=== PATIENT | male | born 1980 | race Caucasian/White ===

== ENCOUNTER 2018-10-10 00:47 | Emergency (ER) | payer BC, SELFPAY ==
[2018-10-10] MEDS ORDERED: FENTANYL CITR 100 MCG/2 ML ONE (01:23)
[2018-10-10] MEDS ORDERED: NA CHLORIDE 0.9% 1,000 ML ONE ×2 (01:23→03:42)
[2018-10-10] MEDS ORDERED: ONDANSETRON 4 MG/2 ML VIAL ONE (01:23)
[2018-10-10 01:30] LABS: Absolute Lymphocytes (CBC) 1.9 K/uL (0.7-4.9); Absolute Monocytes 1.3 K/uL (0.1-1.3); Absolute Neutrophil 7.9 K/uL (1.8-8.0); Basophils % 0.4 % (0-1.3); Eosinophils % 1.7 % (0-4.4); Hematocrit 43.7 % (39.6-49.0); Lymphocytes % 16.9 % (15.3-44.8); MCH 31.7 pg (27.0-35.0); MCV 89.9 fL (80-100); MPV 9.8 fL (7.6-11.3); Monocytes % 11.4 % (3.3-12.3); RBC Red Blood Cell Count 4.87 M/uL (4.33-5.43)
[2018-10-10 01:50] LABS: Albumin 3.9 g/dL (3.4-5.0); Bilirubin Direct 0.2 mg/dL (0-0.2); Bilirubin Total 0.7 mg/dL (0.2-1.0); Potassium 3.5 mmol/L (3.5-5.1); Protein, Total 7.3 g/dL (6.4-8.2)
[2018-10-10] MEDS ORDERED: CEFOXITIN SODIUM 2 GM/VIAL ONE (03:41)
--- NOTE | 2018-10-10 04:32 | ER ---
Nurse's Notes [facility] Name: Fausto Toro Age: 37 yrs Sex: Male : 1980 Arrival Date: 10/10/2018 Time: 00:52 Bed 7 Private MD: Diagnosis: Diverticulitis of large intestine without perforation or abscess without bleeding Presentation: 10/10 01:03 Presenting complaint: EMS states: Patient had 3-5 ft fall 5 days ago, bright red blood lp1 in stool x 2 days, complaint of pelvic pain tonight and dark stool with some bright red blood; Pain to left shoulder related to fall. Transition of care: patient was not received from another setting of care. Onset of symptoms was October 10, 2018. Risk Assessment: Do you want to hurt yourself or someone else? Patient reports no desire to harm self or others. Initial Sepsis Screen: Does the patient meet any 2 criteria? No. Patient's initial sepsis screen is negative. Does the patient have a suspected source of infection? No. Patient's initial sepsis screen is negative. Care prior to arrival: Medication(s) given: Fentanyl 100 mcg IV, Zofran 4 mg IV, Tylenol 1000 mg PO IV initiated. 20 GA, in the right antecubital area. 01:03 Method Of Arrival: EMS: [facility] lp1 01:03 Acuity: ALDAIR 2 lp1 Historical: - Allergies: 01:11 NKA; lp1 - Home Meds: 01:11 lisinopril 20 mg Oral tab 1 tab once daily [Active]; temazepam 30 mg Oral cap 2 cap lp1 once daily [Active]; - PMHx: 01:11 Hypertension; lp1 - PSHx: 01:11 Hernia repair; lp1 - Immunization history:: Adult Immunizations up to date. - Social history:: Smoking status: Patient/guardian denies using tobacco. - Ebola Screening: : No symptoms or risks identified at this time. Screenin:15 Abuse screen: Denies threats or abuse. Denies injuries from another. Nutritional lp1 screening: No deficits noted. Tuberculosis screening: No symptoms or risk factors identified. Fall Risk None identified. Assessment: 01:11 General: Appears uncomfortable, ill, Behavior is appropriate for age. Pain: Complains lp1 of pain in suprapubic area, left shoulder Pain currently is 6 out of 10 on a pain scale. Neuro: Level of Consciousness is awake, alert, obeys commands, Oriented to person, place, time, situation. Cardiovascular: Capillary refill < 3 seconds in bilateral fingers Rhythm is sinus rhythm. Respiratory: Respiratory effort is even, Respiratory pattern is regular, Breath sounds are clear bilaterally. GI: Abdomen is non-distended, Bowel sounds present X 4 quads. Abdomen is tender to palpation in suprapubic area Guarding noted in suprapubic area Reports lower abdominal pain, nausea. : Reports burning with urination. EENT: No signs and/or symptoms were reported regarding the EENT system. Derm: Skin is intact, Skin is clammy, Skin is flushed. Musculoskeletal: Range of motion: limited in left shoulder Reports pain in anterior aspect of left shoulder and posterior aspect of left shoulder. 02:15 Reassessment: Patient taken to CT. lp1 03:30 Reassessment: Patient and/or family updated on plan of care and expected duration. Pain lp1 level reassessed. Patient states abdominal pain returning at this time. 04:30 Reassessment: Patient and/or family updated on plan of care and expected duration. Pain lp1 level reassessed. Patient is alert, oriented x 3, equal unlabored respirations, skin warm/dry/pink. Patient states symptoms have improved. 04:47 Reassessment: Patient waiting for ride home. lp1 Vital Signs: 01:00 BP 139 / 77; Pulse 72; Resp 17; Temp 99.1(O); Pulse Ox 96% on R/A; Weight 115.67 kg; lp1 Height 6 ft. 3 in. (190.50 cm); Pain 6/10; 01:09 Pulse Ox 86% on R/A; lp1 01:09 Pulse Ox 97% on 2 lpm NC; lp1 02:42 BP 122 / 69; Pulse 61; Resp 17; Pulse Ox 98% on R/A; Pain 3/10; tl1 02:43 Temp 98(O); tl1 03:30 BP 122 / 63; Pulse 60; Resp 18; Pulse Ox 97% on R/A; lp1 04:19 BP 119 / 75; Pulse 67; Resp 18; Pulse Ox 97% on R/A; lp1 01:00 Body Mass Index 31.87 (115.67 kg, 190.50 cm) lp1 ED Course: 00:52 Patient arrived in ED. al2 01:03 Sylvain Mo MD is Attending Physician. gs 01:08 Triage completed. lp1 01:09 Arm band placed on right wrist. lp1 01:15 Patient has correct armband on for positive identification. Placed in gown. Cardiac lp1 monitor on. Pulse ox on. NIBP on. 01:16 Isabel Cerrato, RN is Primary Nurse. lp1 01:30 Maintain EMS IV. Dressing intact. Good blood return noted. Site clean \T\ dry. Gauge \T\ lp 1 site: 20g to R AC. 02:16 Maintain EMS IV. IV infiltrated while at CT. lp1 02:16 Inserted saline lock: 20 gauge in left antecubital area, using aseptic technique. lp1 02:18 Radiology exam delayed due to IV insertion attempt and/or patient not having kw1 appropriate IV at this time. 02:[address] via stretcher. kw1 02:29 CT Abd/Pelvis - W/Contrast In Process Unspecified. EDMS 02:30 CT completed. Patient tolerated procedure well. Patient moved back from CT. kw1 04:31 Augustine Rhodes MD is Referral Physician. gs 04:46 No provider procedures requiring assistance completed. IV discontinued, No lp1 redness/swelling at site. Pressure dressing applied. Administered Medications: 01:23 Drug: fentaNYL (PF) 50 mcg Route: IVP; Infused Over: 2 mins; Site: right antecubital; tl1 02:53 Follow up: Response: No adverse reaction; Marked relief of symptoms; Pain is decreased tl1 01:23 Drug: Zofran 4 mg Route: IVP; Infused Over: 2 mins; Site: right antecubital; tl1 02:54 Follow up: Response: No adverse reaction; Marked relief of symptoms; Nausea is decreasedtl1 01:24 Drug: NS 0.9% 1000 ml Route: IV; Rate: 1 bolus; Site: right antecubital; tl1 02:45 Follow up: IV Status: Completed infusion; IV Intake: 1000ml lp1 03:42 Drug: cefOXitin 2 grams Route: IVPB; Infused Over: 30 mins; Site: left antecubital; tl1 04:15 Follow up: IV Status: Completed infusion tl1 03:42 Drug: fentaNYL (PF) 50 mcg Route: IVP; Infused Over: 2 mins; Site: left antecubital; tl1 04:15 Follow up: Response: No adverse reaction; Marked relief of symptoms; Pain is decreased tl1 Intake: 02:45 IV: 1000ml; Total: 1000ml. lp1 Outcome: 04:32 Discharge ordered by . 04:46 Condition: stable lp1 04:46 Discharge instructions given to patient, Instructed on discharge instructions, follow up and referral plans. medication usage, Demonstrated understanding of instructions, follow-up care, medications, Prescriptions given X 3. 05:20 Discharged to home ambulatory, with friend. lp1 05:21 Patient left the ED. lp1 Signatures: Dispatcher [employer] EDMS Isabel Cerrato RN RN lp1 Kathy Arriaga RN RN tl1 Sylvain Mo MD MD Taylor Wilkes1 Ciara Eisenberg2 Corrections: (The following items were deleted from the chart) 04:46 03:30 Reassessment: Patient states abdominal pain returning at this time lp1 lp1 04:46 02:30 Reassessment: Patient states some relief from medication administered; lp1 lp1
--- NOTE | 2018-10-10 04:33 | EDPHYS ---
Physician Documentation [facility] Name: Fausto Toro Age: 37 yrs Sex: Male : 1980 Arrival Date: 10/10/2018 Time: 00:52 Bed 7 Private MD: ED Physician Sylvain Mo HPI: 10/10 04:28 This 37 yrs old Male presents to ER via EMS with complaints of abdominal pain.gs 04:29 The patient presents with abdominal pain in the lower abdomen. Onset: The gs symptoms/episode began/occurred 2 day(s) ago, and became persistent. The symptoms do not radiate. Associated signs and symptoms: Pertinent positives: blood in stools. Associated signs and symptoms: Pertinent positives: constipation, Pertinent negatives: fever, vomiting, vomiting blood. The symptoms are described as sharp. Modifying factors: The symptoms are alleviated by nothing, the symptoms are aggravated by nothing. Severity of pain: At its worst the pain was severe in the emergency department the pain has improved mildly. The patient has not experienced similar symptoms in the past. Historical: - Allergies: 01:11 NKA; lp1 - Home Meds: 01:11 lisinopril 20 mg Oral tab 1 tab once daily [Active]; temazepam 30 mg Oral cap 2 cap lp1 once daily [Active]; - PMHx: 01:11 Hypertension; lp1 - PSHx: 01:11 Hernia repair; lp1 - Immunization history:: Adult Immunizations up to date. - Social history:: Smoking status: Patient/guardian denies using tobacco. - Ebola Screening: : No symptoms or risks identified at this time. ROS: 04:29 All other systems are negative. gs Exam: 04:29 Head/Face: Normocephalic, atraumatic. Eyes: Pupils equal round and reactive to light, gs extra-ocular motions intact. Lids and lashes normal. Conjunctiva and sclera are non-icteric and not injected. Cornea within normal limits. Periorbital areas with no swelling, redness, or edema. ENT: Nares patent. No nasal discharge, no septal abnormalities noted. Tympanic membranes are normal and external auditory canals are clear. Oropharynx with no redness, swelling, or masses, exudates, or evidence of obstruction, uvula midline. Mucous membranes moist. Neck: Trachea midline, no thyromegaly or masses palpated, and no cervical lymphadenopathy. Supple, full range of motion without nuchal rigidity, or vertebral point tenderness. No Meningismus. Chest/axilla: Normal chest wall appearance and motion. Nontender with no deformity. No lesions are appreciated. Cardiovascular: Regular rate and rhythm with a normal S1 and S2. No gallops, murmurs, or rubs. Normal PMI, no JVD. No pulse deficits. Respiratory: Lungs have equal breath sounds bilaterally, clear to auscultation and percussion. No rales, rhonchi or wheezes noted. No increased work of breathing, no retractions or nasal flaring. Back: No spinal tenderness. No costovertebral tenderness. Full range of motion. Male : Normal genitalia with no discharge or lesions. Skin: Warm, dry with normal turgor. Normal color with no rashes, no lesions, and no evidence of cellulitis. MS/ Extremity: Pulses equal, no cyanosis. Neurovascular intact. Full, normal range of motion. Neuro: Awake and alert, GCS 15, oriented to person, place, time, and situation. Cranial nerves II-XII grossly intact. Motor strength 5/5 in all extremities. Sensory grossly intact. Cerebellar exam normal. Normal gait. 04:29 Constitutional: The patient appears alert, awake, uncomfortable. 04:29 Abdomen/GI: Palpation: moderate abdominal tenderness, in the right lower quadrant and left lower quadrant, rebound tenderness, is not appreciated. Vital Signs: 01:00 BP 139 / 77; Pulse 72; Resp 17; Temp 99.1(O); Pulse Ox 96% on R/A; Weight 115.67 kg; lp1 Height 6 ft. 3 in. (190.50 cm); Pain 6/10; 01:09 Pulse Ox 86% on R/A; lp1 01:09 Pulse Ox 97% on 2 lpm NC; lp1 02:42 BP 122 / 69; Pulse 61; Resp 17; Pulse Ox 98% on R/A; Pain 3/10; tl1 02:43 Temp 98(O); tl1 03:30 BP 122 / 63; Pulse 60; Resp 18; Pulse Ox 97% on R/A; lp1 04:19 BP 119 / 75; Pulse 67; Resp 18; Pulse Ox 97% on R/A; lp1 01:00 Body Mass Index 31.87 (115.67 kg, 190.50 cm) lp1 MDM: 01:12 Patient medically screened. 04:29 Differential diagnosis: bowel obstruction, diverticulitis, gastritis, gastroesophageal gs reflux disease, pancreatitis. Data reviewed: vital signs, nurses notes. Data reviewed: lab test result(s), radiologic studies. Counseling: I had a detailed discussion with the patient and/or guardian regarding: the historical points, exam findings, and any diagnostic results supporting the discharge/admit diagnosis, lab results, radiology results, the need for outpatient follow up. Response to treatment: the patient's symptoms have markedly improved after treatment, patient is well hydrated. and as a result, I will discharge patient. 10/10 01:11 Order name: Basic Metabolic Panel; Complete Time: :56 10/10 01:11 Order name: CBC with Diff; Complete Time: :56 10/10 01:11 Order name: Hepatic Function; Complete Time: :56 10/10 01:11 Order name: Lipase; Complete Time: :56 10/10 01:11 Order name: CT Abd/Pelvis - W/Contrast 10/10 01:11 Order name: IV Saline Lock; Complete Time: 01:17 10/10 01:11 Order name: Labs collected and sent; Complete Time: 01:25 gs Administered Medications: 01:23 Drug: fentaNYL (PF) 50 mcg Route: IVP; Infused Over: 2 mins; Site: right antecubital; tl1 02:53 Follow up: Response: No adverse reaction; Marked relief of symptoms; Pain is decreased tl1 01:23 Drug: Zofran 4 mg Route: IVP; Infused Over: 2 mins; Site: right antecubital; tl1 02:54 Follow up: Response: No adverse reaction; Marked relief of symptoms; Nausea is decreasedtl1 01:24 Drug: NS 0.9% 1000 ml Route: IV; Rate: 1 bolus; Site: right antecubital; tl1 02:45 Follow up: IV Status: Completed infusion; IV Intake: 1000ml lp1 03:42 Drug: cefOXitin 2 grams Route: IVPB; Infused Over: 30 mins; Site: left antecubital; tl1 04:15 Follow up: IV Status: Completed infusion tl1 03:42 Drug: fentaNYL (PF) 50 mcg Route: IVP; Infused Over: 2 mins; Site: left antecubital; tl1 04:15 Follow up: Response: No adverse reaction; Marked relief of symptoms; Pain is decreased tl1 Disposition: 10/10/18 04:32 Discharged to Home. Impression: Diverticulitis of large intestine without perforation or abscess without bleeding. - Condition is Stable. - Discharge Instructions: High-Fiber Diet, Diverticulitis. - Prescriptions for Flagyl 500 mg Oral Tablet - take 1 tablet by ORAL route every 6 hours for 10 days; 40 tablet. Keflex 500 mg Oral Capsule - take 2 capsule by ORAL route every 12 hours for 10 days; 40 capsule. Tylenol- Codeine #4 300-60 mg Oral Tablet - take 1 tablet by ORAL route every 6 hours As needed; 12 tablet. - Medication Reconciliation Form, Thank You Letter, Antibiotic Education, Prescription Opioid Use form. - Follow up: Private Physician; When: 2 - 3 days; Reason: Re-evaluation by your physician. Follow up: Augustine Rhodes MD; When: 2 - 3 days; Reason: Re-evaluation by your physician. Signatures: Dispatcher [employer] EDIsabel Brown RN RN lp1 Kathy Arriaga RN RN tl1 Sylvain Mo MD MD Corrections: (The following items were deleted from the chart) 05:21 04:32 10/10/2018 04:32 Discharged to Home. Impression: Diverticulitis of large lp1 intestine without perforation or abscess without bleeding. Condition is Stable. Forms are Medication Reconciliation Form, Thank You Letter, Antibiotic Education, Prescription Opioid Use. Follow up: Private Physician; When: 2 - 3 days; Reason: Re-evaluation by your physician. Follow up: Augustine Rhodes; When: 2 - 3 days; Reason: Re-evaluation by your physician. gs
--- NOTE | 2018-10-10 09:12 | RAD REPORT ---
EXAM DESCRIPTION: CT - Abdomen Pelvis W Contrast - 10/10/2018 5:56 am CLINICAL HISTORY: Abdominal pain with hematochezia for 2 days COMPARISON: May 2017 TECHNIQUE: Computed axial tomography of the abdomen pelvis was obtained. 100 cc Isovue-300 was admin istered intravenously. Oral contrast was not requested which limits evaluation of bowel.Preliminary r eport generated by [employer] and reviewed prior to dictation All CT scans are performed using dose optimization technique as appropriate and may include automated exposure control or mA/KV adjustment according to patient size. FINDINGS: Fatty infiltration liver. Spleen, pancreas, adrenal and kidneys appear unremarkable. Increased density within the appendix could represent contrast or an appendicolith. The appendix is n ormal caliber. Moderate stranding is present adjacent to the sigmoid colon. Diverticula are noted. Free air is not s een. An abscess is not noted. A 47 millimeter lucency with sclerotic border is within the right iliac crest is unchanged from 2016 and likely is benign IMPRESSION: Moderate diverticulitis
[2018-10-10 13:04] VITALS: TEMP 98
[2018-10-10 13:05] VITALS: O2SAT 97
[2018-10-10 13:07] VITALS: BP 119/75
== END 2018-10-10 05:21 | disposition home or self-care (01) ==
LOC: ER 00:47
DX: K57.32 Diverticulitis of large intestine without perforation or abscess without bleeding (principal); I10 Essential (primary) hypertension
CPT/HCPCS: 36415; 74177; 80048; 80076; 83690; 85025; 99285; J0694; J2405; J3010; J7030; Q9967

== ENCOUNTER 2019-02-26 18:24 | Inpatient (IN) | payer OTHER, SELFPAY ==
[2019-02-26 19:25] LABS: Absolute Lymphocytes (CBC) 1.3 K/uL (0.7-4.9); Absolute Monocytes 1.1 K/uL (0.1-1.3); Absolute Neutrophil 8.6 K/uL (1.8-8.0); Basophils % 0.4 % (0-1.3); Eosinophils % 0.8 % (0-4.4); Hematocrit 47.2 % (39.6-49.0); Lymphocytes % 11.5 % (15.3-44.8); Monocytes % 9.5 % (3.3-12.3)
[2019-02-26] MEDS ORDERED: ONDANSETRON 4 MG/2 ML VIAL ONE (19:25)
[2019-02-26] MEDS ORDERED: MORPHINE 4 MG/ML SYR ONE ×2 (19:25→20:41)
[2019-02-26] MEDS ORDERED: NA CHLORIDE 0.9% 1,000 ML ONE (19:25)
[2019-02-26 19:38] LABS: Albumin 4.2 g/dL (3.4-5.0); Bilirubin Direct 0.2 mg/dL (0-0.2); Potassium 3.8 mmol/L (3.5-5.1)
--- NOTE | 2019-02-26 20:35 | RAD REPORT ---
EXAM DESCRIPTION: CTAbdomen Pelvis W Contrast - 02/26/2019 8:21 pm CLINICAL HISTORY: Abdominal pain. ABD PAIN COMPARISON: Abdomen Pelvis W Contrast dated 10/10/2018; Abdomen Pelvis W Contrast dated 7; Abdomen Pelvis W Contrast dated 02/17/2016 TECHNIQUE: Biphasic CT imaging of the abdomen and pelvis was performed with 100 ml non-ionic IV cont rast. All CT scans are performed using dose optimization technique as appropriate and may include automated exposure control or mA/KV adjustment according to patient size. FINDINGS: The lung bases are clear. Diffuse fatty liver is present. The spleen, pancreas, adrenal glands and kidneys are within normal li mits. Mild pneumoperitoneum is present. There is inflammatory changes in the left lower quadrant surroundin g short segment of the sigmoid colon. Multiple diverticula are present. Pockets of air are present al yazan the left pericolic gutter. The appendix is normal. No evidence of significant lymphadenopathy. No significant change in right iliac wing lucent lesions. IMPRESSION: Acute left lower quadrant diverticulitis is suspected, mild to moderate in severity. Ext raluminal air is present along the left pericolic gutter as well as a small volume of pneumoperitoneu m, likely all related to this process. Followup colonoscopy would be suggested for direct visualizati on.
[2019-02-26] MEDS ORDERED: CIPROFLOXACIN 400mg IV 400 MG/200 ML BAG IV ONE (20:41)
[2019-02-26] MEDS ORDERED: METRONIDAZOLE 500mg IVPB 500 MG/100 ML BAG IV ONE (20:41)
--- NOTE | 2019-02-26 21:01 | ER ---
Nurse's Notes [facility] Name: Fausto Toro Age: 38 yrs Sex: Male : 1980 Arrival Date: 02/26/2019 Time: 18:28 Bed 17 Private MD: None, None Diagnosis: Diverticulitis of large inestine with perforation Presentation: 02/26 18:33 Presenting complaint: Patient states: LLQ pain, n/d since Monday. Transition of care: sv patient was not received from another setting of care. Onset of symptoms was February 24, 2019. Care prior to arrival: None. 18:33 Method Of Arrival: Ambulatory sv 18:33 Acuity: ALDAIR 3 sv 18:36 Risk Assessment: Do you want to hurt yourself or someone else? Patient reports no tw2 desire to harm self or others. Initial Sepsis Screen: Does the patient meet any 2 criteria? No. Patient's initial sepsis screen is negative. Does the patient have a suspected source of infection? No. Patient's initial sepsis screen is negative. Triage Assessment: 18:33 General: Appears in no apparent distress. uncomfortable, well developed, Behavior is sv cooperative, appropriate for age, restless. Pain: Complains of pain in left lower quadrant Pain currently is 8 out of 10 on a pain scale. Pain began 2-3 days ago. Noted to be grimacing, guarding. Neuro: Level of Consciousness is awake, alert, obeys commands, Oriented to person, place, time, situation, Gait is steady. Respiratory: Respiratory effort is even, unlabored, Respiratory pattern is regular, symmetrical. GI: Reports lower abdominal pain, diarrhea, nausea. Historical: - Allergies: 18:33 NKA; sv - Home Meds: 18:37 lisinopril 20 mg Oral tab 1 tab once daily [Active]; temazepam 30 mg Oral cap 2 cap tw2 once daily [Active]; - PMHx: 18:33 Hypertension; Diverticulitis; sv - PSHx: 18:33 Hernia repair; sv - Immunization history:: Adult Immunizations. - Social history:: Smoking status: . - Ebola Screening: : Patient denies travel to an Ebola-affected area in the 21 days before illness onset. Screenin:35 Abuse screen: Denies threats or abuse. Nutritional screening: No deficits noted. tw2 Tuberculosis screening: No symptoms or risk factors identified. Fall Risk None identified. Assessment: 18:37 General: Appears uncomfortable, Behavior is calm, cooperative, appropriate for age. tw2 Pain: Complains of pain in abdomen. Neuro: Level of Consciousness is awake, alert, obeys commands, Oriented to person, place, time, Appropriate for age. Cardiovascular: Heart tones S1 S2 Patient's skin is warm and dry. Respiratory: Airway is patent Respiratory effort is even, unlabored, Respiratory pattern is regular, symmetrical, Breath sounds are clear bilaterally. GI: Abdomen is flat, Bowel sounds present X 4 quads. Abd is soft X 4 quads Reports lower abdominal pain. : No signs and/or symptoms were reported regarding the genitourinary system. EENT: No signs and/or symptoms were reported regarding the EENT system. Derm: No signs and/or symptoms reported regarding the dermatologic system. Musculoskeletal: Range of motion: intact in all extremities. 19:21 General: Appears in no apparent distress. uncomfortable, Behavior is calm, cooperative, ao appropriate for age. Pain: Complains of pain in abdomen Pain currently is 8 out of 10 on a pain scale. Neuro: Level of Consciousness is awake, alert, obeys commands, Oriented to person, place, time, Appropriate for age Moves all extremities. Full function Speech is normal, Facial symmetry appears normal. Cardiovascular: Heart tones S1 S2 Capillary refill < 3 seconds Patient's skin is warm and dry. Respiratory: Airway is patent Respiratory effort is even, unlabored, Respiratory pattern is regular, symmetrical, Breath sounds are clear bilaterally. GI: Abdomen is flat, Bowel sounds present X 4 quads. Abd is soft X 4 quads Reports lower abdominal pain. : No signs and/or symptoms were reported regarding the genitourinary system. EENT: No signs and/or symptoms were reported regarding the EENT system. Derm: No signs and/or symptoms reported regarding the dermatologic system. Skin is intact, Skin temperature is warm. Musculoskeletal: Range of motion: intact in all extremities. 20:50 Reassessment: Patient appears in no apparent distress at this time. Patient and/or ao family updated on plan of care and expected duration. Pain level reassessed. Patient is alert, oriented x 3, equal unlabored respirations, skin warm/dry/pink. 22:00 Reassessment: Patient appears in no apparent distress at this time. Patient and/or ao family updated on plan of care and expected duration. Pain level reassessed. Patient is alert, oriented x 3, equal unlabored respirations, skin warm/dry/pink. Waiting on Dispo orders. Dr Vaca was consult Patient states feeling better. Patient states symptoms have improved. 23:45 Reassessment: Patient appears in no apparent distress at this time. Patient and/or ao family updated on plan of care and expected duration. Pain level reassessed. Patient to be admitted to the hospital per Dru Cobb NP. Dr Samuels and Bernardino had spoken to patient already. 02/27 00:04 Reassessment: Patient is ER hold how. See [facility] for documentation. ao 01:14 Reassessment: Patient was admitted to the hospital before any [employer] charting had to ao be starting. Report was called to RASHAD Posada. Patient was transported to his room. VS stable. Vital Signs: 02/26 18:33 BP 121 / 106; Pulse 98; Resp 24; Temp 99.5; Pulse Ox 99% ; Weight 115.67 kg; Height 6 sv ft. 3 in. (190.50 cm); Pain 8/10; 19:30 BP 132 / 65; Pulse 88; Resp 16; Pulse Ox 96% on R/A; ao 20:30 BP 110 / 78; Pulse 92; Resp 16; Pulse Ox 100% on R/A; ao 22:30 BP 122 / 80; Pulse 93; Resp 18; Pulse Ox 100% on R/A; ao 02/27 00:04 BP 130 / 86; Pulse 90; Resp 16; Pulse Ox 96% on R/A; ao 02/26 18:33 Body Mass Index 31.87 (115.67 kg, 190.50 cm) sv ED Course: 02/26 18:28 Patient arrived in ED. mr 18:28 None, None is Private Physician. mr 18:33 Triage completed. sv 18:34 Arm band placed on. sv 18:35 Magdalena Dutta, RASHAD is Primary Nurse. tw2 18:36 Bed in low position. Call light in reach. Pulse ox on. NIBP on. tw2 18:50 Dru Cobb NP is PHCP. pm1 18:50 Sylvain Mo MD is Attending Physician. pm1 18:56 Radiology exam delayed due to lab results not completed at this time. (BUN/Creatinine). vm2 19:00 Report given to RASHAD Perez - pending labs and medication at this time. tw2 19:20 Initial lab(s) drawn, by me, sent to lab. Inserted saline lock: 20 gauge antecubital ao area, using aseptic technique. Blood collected. 19:38 Radiology exam delayed due to lab results not completed at this time. (BUN/Creatinine). vm2 19:[address] via wheelchair. nj 20:04 CT completed. Patient tolerated procedure well. Patient moved back from CT. nj 20:05 CT Abd/Pelvis - W/Contrast: IV contrast only In Process Unspecified. EDMS 20:56 Paul Hutchison MD is Hospitalizing Provider. pm1 21:00 Boris Rojas MD is Hospitalizing Provider. pm1 0417 00:07 No provider procedures requiring assistance completed. Patient admitted, IV remains in ao place. Administered Medications: 02/26 19:18 Drug: Zofran 4 mg Route: IVP; Site: right antecubital; ao 20:37 Follow up: Response: No adverse reaction ao 19:19 Drug: NS 0.9% 1000 ml Route: IV; Rate: 1000 ml; Site: right antecubital; ao 20:37 Follow up: IV Status: Completed infusion ao 19:19 Drug: morphine 4 mg Route: IVP; Site: right antecubital; ao 20:36 Follow up: Response: Pain is unchanged, physician notified ao 20:36 Drug: Cipro 400 mg Volume: 200 ml; Route: IVPB; Infused Over: 60 mins; Site: right ao antecubital; 22:13 Follow up: IV Status: Completed infusion ao 20:36 Drug: Flagyl 500 mg Volume: 100 ml; Route: IVPB; Rate: 200 ml/hr; Infused Over: 30 ao mins; Site: right antecubital; 22:13 Follow up: IV Status: Completed infusion ao 20:36 Drug: morphine 4 mg Route: IVP; Site: right antecubital; ao 22:14 Follow up: Response: No adverse reaction; Pain is decreased ao 22:14 Drug: Zosyn 3.375 grams Route: IVPB; Infused Over: 60 mins; Site: right antecubital; ao Outcome: 21:00 Decision to Hospitalize by Provider. pm1 02/27 00:08 Admitted to ER Hold. Please see [facility] for further documentation. ao Condition: stable Instructed on the need for admit. 01:15 Patient left the ED. ao Signatures: Dispatcher [employer] EDRachel Koehler, RASHAD rojo Ashley Jauregui, Chris RN RN Dru Munoz, HUMAN SERVICES CARE SPECIALIST HUMAN SERVICES CARE SPECIALIST pm1 Magdalena Dutta RN RN 2 Isai Dixon [facility]
--- NOTE | 2019-02-26 21:02 | EDPHYS ---
Physician Documentation [facility] Name: Fausto Toro Age: 38 yrs Sex: Male : 1980 Arrival Date: 02/26/2019 Time: 18:28 Bed 17 Private MD: None, None ED Physician Sylvain Mo HPI: 02/26 19:00 This 38 yrs old Male presents to ER via Ambulatory with complaints of pm1 Abdominal Pain, Nausea. 19:00 The patient presents with abdominal pain in the lower abdomen. Onset: The pm1 symptoms/episode began/occurred 2 day(s) ago. The symptoms do not radiate. Associated signs and symptoms: Pertinent positives: nausea, Pertinent negatives: diarrhea, dysuria, fever, vomiting. The symptoms are described as sharp. Modifying factors: The symptoms are alleviated by nothing, the symptoms are aggravated by nothing. Severity of pain: in the emergency department the pain is actually worse. The patient has experienced similar episodes in the past, several times, but today's symptoms are worse, more painful. The patient has not recently seen a physician. possibly onset by eating grapes. Historical: - Allergies: 18:33 NKA; sv - Home Meds: 18:37 lisinopril 20 mg Oral tab 1 tab once daily [Active]; temazepam 30 mg Oral cap 2 cap tw2 once daily [Active]; - PMHx: 18:33 Hypertension; Diverticulitis; sv - PSHx: 18:33 Hernia repair; sv - Immunization history:: Adult Immunizations. - Social history:: Smoking status: . - Ebola Screening: : Patient denies travel to an Ebola-affected area in the 21 days before illness onset. ROS: 19:00 Constitutional: Negative for fever, chills, and weight loss, Eyes: Negative for injury, pm1 pain, redness, and discharge, ENT: Negative for injury, pain, and discharge, Neck: Negative for injury, pain, and swelling, Cardiovascular: Negative for chest pain, palpitations, and edema, Respiratory: Negative for shortness of breath, cough, wheezing, and pleuritic chest pain. 19:00 Back: Negative for injury and pain, : Negative for injury, bleeding, discharge, and swelling, MS/Extremity: Negative for injury and deformity, Skin: Negative for injury, rash, and discoloration, Neuro: Negative for headache, weakness, numbness, tingling, and seizure. 19:00 Abdomen/GI: Positive for abdominal pain, nausea, Negative for vomiting, diarrhea, constipation. Exam: 19:00 Constitutional: This is a well developed, well nourished patient who is awake, alert, pm1 and in no acute distress. Head/Face: Normocephalic, atraumatic. Eyes: Pupils equal round and reactive to light, extra-ocular motions intact. Lids and lashes normal. Conjunctiva and sclera are non-icteric and not injected. Cornea within normal limits. Periorbital areas with no swelling, redness, or edema. ENT: Nares patent. No nasal discharge, no septal abnormalities noted. Tympanic membranes are normal and external auditory canals are clear. Oropharynx with no redness, swelling, or masses, exudates, or evidence of obstruction, uvula midline. Mucous membranes moist. Neck: Trachea midline, no thyromegaly or masses palpated, and no cervical lymphadenopathy. Supple, full range of motion without nuchal rigidity, or vertebral point tenderness. No Meningismus. Chest/axilla: Normal chest wall appearance and motion. Nontender with no deformity. No lesions are appreciated. Cardiovascular: Regular rate and rhythm with a normal S1 and S2. No gallops, murmurs, or rubs. Normal PMI, no JVD. No pulse deficits. Respiratory: Lungs have equal breath sounds bilaterally, clear to auscultation and percussion. No rales, rhonchi or wheezes noted. No increased work of breathing, no retractions or nasal flaring. 19:00 Back: No spinal tenderness. No costovertebral tenderness. Full range of motion. Skin: Warm, dry with normal turgor. Normal color with no rashes, no lesions, and no evidence of cellulitis. MS/ Extremity: Pulses equal, no cyanosis. Neurovascular intact. Full, normal range of motion. 19:00 Abdomen/GI: Inspection: abdomen appears normal, Bowel sounds: normal, Palpation: soft, moderate abdominal tenderness, in the right lower quadrant and left lower quadrant, mass, is not appreciated, rebound tenderness, is not appreciated. 19:00 Neuro: Orientation: is normal, Motor: is normal, moves all fours. Vital Signs: 18:33 BP 121 / 106; Pulse 98; Resp 24; Temp 99.5; Pulse Ox 99% ; Weight 115.67 kg; Height 6 sv ft. 3 in. (190.50 cm); Pain 8/10; 19:30 BP 132 / 65; Pulse 88; Resp 16; Pulse Ox 96% on R/A; ao 20:30 BP 110 / 78; Pulse 92; Resp 16; Pulse Ox 100% on R/A; ao 22:30 BP 122 / 80; Pulse 93; Resp 18; Pulse Ox 100% on R/A; ao 02/27 00:04 BP 130 / 86; Pulse 90; Resp 16; Pulse Ox 96% on R/A; ao 02/26 18:33 Body Mass Index 31.87 (115.67 kg, 190.50 cm) sv MDM: 02/26 18:54 Patient medically screened. pm1 20:53 Physician consultation: Paul Hutchison MD was called at 20:53, was contacted at 20:53, pm1 regarding consult, patient's condition, and will see patient in ED, shortly. 20:56 Counseling: I had a detailed discussion with the patient and/or guardian regarding: the pm1 historical points, exam findings, and any diagnostic results supporting the discharge/admit diagnosis, lab results, radiology results, the need for further work-up and treatment in the hospital. 21:06 Physician consultation: Paul Hutchison MD would like medications started, Zosyn, in the pm1 emergency department to see patient at 21:06. 02/27 00:00 Data reviewed: vital signs. Data interpreted: Pulse oximetry: on room air is 96 %. pm1 Interpretation: normal. 02/26 18:55 Order name: Basic Metabolic Panel; Complete Time: 20:24 pm1 02/26 18:55 Order name: CBC with Diff; Complete Time: 20:24 pm1 02/26 18:55 Order name: Creatinine for Radiology; Complete Time: 20:24 pm1 02/26 18:55 Order name: Hepatic Function; Complete Time: 20:24 pm1 02/26 18:55 Order name: Lipase; Complete Time: 20:24 pm1 02/26 22:19 Order name: Urine Dipstick--Ancillary (enter results); Complete Time: 23:47 mw2 02/26 18:55 Order name: CT Abd/Pelvis - W/Contrast: IV contrast only; Complete Time: 20:46 pm1 02/26 18:55 Order name: IV Saline Lock; Complete Time: 19:19 pm1 02/26 18:55 Order name: Labs collected and sent; Complete Time: 19:19 pm1 02/26 18:55 Order name: Urine Dipstick-Ancillary (obtain specimen); Complete Time: 22:15 pm1 02/26 19:00 Order name: NPO; Complete Time: 19:17 pm1 Administered Medications: 02/26 19:18 Drug: Zofran 4 mg Route: IVP; Site: right antecubital; ao 20:37 Follow up: Response: No adverse reaction ao 19:19 Drug: NS 0.9% 1000 ml Route: IV; Rate: 1000 ml; Site: right antecubital; ao 20:37 Follow up: IV Status: Completed infusion ao 19:19 Drug: morphine 4 mg Route: IVP; Site: right antecubital; ao 20:36 Follow up: Response: Pain is unchanged, physician notified ao 20:36 Drug: Cipro 400 mg Volume: 200 ml; Route: IVPB; Infused Over: 60 mins; Site: right ao antecubital; 22:13 Follow up: IV Status: Completed infusion ao 20:36 Drug: Flagyl 500 mg Volume: 100 ml; Route: IVPB; Rate: 200 ml/hr; Infused Over: 30 ao mins; Site: right antecubital; 22:13 Follow up: IV Status: Completed infusion ao 20:36 Drug: morphine 4 mg Route: IVP; Site: right antecubital; ao 22:14 Follow up: Response: No adverse reaction; Pain is decreased ao 22:14 Drug: Zosyn 3.375 grams Route: IVPB; Infused Over: 60 mins; Site: right antecubital; ao Disposition: 02/27 09:40 Co-signature as Attending Physician, Sylvain Mo MD. gs Disposition: 02/26/19 21:00 Hospitalization ordered by Boris Rojas for Inpatient Admission. Preliminary diagnosis is Diverticulitis of large inestine with perforation. - Bed requested for Telemetry/MedSurg (Inpatient). - Status is Inpatient Admission. ao - Condition is Stable. - Problem is new. - Symptoms have improved. UTI on Admission? No Signatures: Dispatcher [employer] Rachel Ma RN Prabha Roberts, RN RN dw Lizzeth Hammond, RASHAD RN bb Chris Hagen, RN RN ao Dru Cobb, DOUBLE END TRIMMER DOUBLE END TRIMMER pm1 Magdalena Dutta RN RN tw2 Sylvain Mo MD MD gs Corrections: (The following items were deleted from the chart) 02/26 19:11 18:55 Urine Test ordered. pm1 tw2 23:33 21:00 Hospitalization Ordered by Boris Rojas MD for Inpatient Admission. Preliminary dw diagnosis is Diverticulitis of large inestine with perforation. Bed requested for Telemetry/MedSurg (Inpatient). Status is Inpatient Admission. Condition is Stable. Problem is new. Symptoms have improved. UTI on Admission? No. pm1 02/27 00:31 02/26 23:33 02/26/2019 21:00 Hospitalization Ordered by Boris Rojas MD for Inpatient bb Admission. Preliminary diagnosis is Diverticulitis of large inestine with perforation. Bed requested for [facility] ER HOLD. Status is Inpatient Admission. Condition is Stable. Problem is new. Symptoms have improved. UTI on Admission? No. dw 02/27 00:32 00:31 02/26/2019 21:00 Hospitalization Ordered by Boris Rojas MD for Inpatient bb Admission. Preliminary diagnosis is Diverticulitis of large inestine with perforation. Bed requested for Telemetry/MedSurg (Inpatient). Status is Inpatient Admission. Condition is Stable. Problem is new. Symptoms have improved. UTI on Admission? No. bb 01:15 00:32 02/26/2019 21:00 Hospitalization Ordered by Boris Rojas MD for Inpatient ao Admission. Preliminary diagnosis is Diverticulitis of large inestine with perforation. Bed requested for Telemetry/MedSurg (Inpatient). Status is Inpatient Admission. Condition is Stable. Problem is new. Symptoms have improved. UTI on Admission? No. bb
[2019-02-26] MEDS ORDERED: PIPER/TAZO/NS 3.375gm 3.375 GM/100 ML BAG ONE (22:13)
[2019-02-26 22:34] LABS: Urine Blood NEGATIVE (NEG); Urine Glucose NEGATIVE (NEG); Urine Protein NEGATIVE (NEG); Urine Specific Gravity 1.015 (1.005-1.030); Urine pH 6.5 (5.0-7.0)
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
[2019-02-27] MEDS ORDERED: NA CHLORIDE 0.9% 1,000 ML IV SCH (01:28)
[2019-02-27] MEDS: PIPER/TAZO/NS 3.375gm 3.375 GM/100 ML BAG IVPB SCH ×2 (01:28→06:50)
[2019-02-27 02:10] VITALS: BMI 31.7
[2019-02-27] MEDS: Levofloxacin 750mg IV 750 MG/150 ML BAG IV SCH (02:54)
[2019-02-27] MEDS: MORPHINE 2 MG/ML SYR IV PRN ×3 (02:54→17:09)
[2019-02-27] MEDS: METRONIDAZOLE 500mg IVPB 500 MG/100 ML BAG IV SCH ×3 (02:55→17:05)
[2019-02-27] MEDS: ONDANSETRON 4 MG/2 ML VIAL IV PRN ×3 (02:56→17:09)
[2019-02-27] MEDS ORDERED: PIPERACIL/TAZO 3.375 GM VIAL IV ONE (03:00)
[2019-02-27 04:23] LABS: Absolute Lymphocytes (CBC) 1.4 K/uL (0.7-4.9); Absolute Monocytes 1.1 K/uL (0.1-1.3); Absolute Neutrophil 8.8 K/uL (1.8-8.0); Basophils % 0.2 % (0-1.3); Eosinophils % 0.5 % (0-4.4); Hematocrit 44.6 % (39.6-49.0); Lymphocytes % 12.2 % (15.3-44.8); MPV 9.1 fL (7.6-11.3); RBC Red Blood Cell Count 4.89 M/uL (4.33-5.43)
[2019-02-27 04:36] LABS: Albumin 3.9 g/dL (3.4-5.0); Potassium 3.9 mmol/L (3.5-5.1); Protein, Total 7.5 g/dL (6.4-8.2)
[2019-02-27] MEDS ORDERED: NA CHLORIDE 0.9% 100 ML ONE (06:58)
[2019-02-27] MEDS ORDERED: KCL 20 MEQ/100 mL IVPB 20 MEQ/100 ML BAG IV SCH (09:00)
[2019-02-27] MEDS ORDERED: D50W 25 GM/50 ML SYRINGE IV PRN (09:40)
[2019-02-27] MEDS ORDERED: GLUCAGON 1 MG/VIAL IM PRN (09:40)
--- NOTE | 2019-02-27 09:42 | P.PN ---
Subjective Date of Service: 02/27/19 Chief Complaint: complicated diverticulitis Subjective: Improving (Patient states he feels somewhat better, passing gas now. no nausea. increased appetite) Physical Examination - Vital Signs Temperature: 98.8 F Blood Pressure: 127/71 Pulse: 86 Respirations: 20 Pulse Ox (%): 94 - Physical Exam General: Alert, In no apparent distress, Cooperative Gastrointestinal: Other (soft, + LLQ TTP, ND, + voluntary guarding in LLQ, + mild rebound. minimally improved from prior exam) - Studies Laboratory Data (last 24 hrs) 02/26/19 19:10: Creatinine 1.26 02/26/19 19:10: WBC 11.1 H, Hgb 16.0, Hct 47.2, Plt Count 174 02/26/19 19:10: Sodium 141, Potassium 3.8, BUN 11, Creatinine 1.26, Glucose 95, Total Bilirubin 1.0, AST 15, ALT 48, Alkaline Phosphatase 65, Lipase 105 Assessment And Plan - Current Problems (Diagnosis) (1) Diverticulitis of large intestine with complication Current Visit: Yes Status: Acute Plan: - IV hydration - increase IV fluids - antibiotic coverage - serial exams - patient does not require emergent surgical intervention at this time, but will continue to evaluate - plan discussed with patient - continue NPO - strict I/O - insulin sliding scale - toradol x 48 hours
[2019-02-27] MEDS: D5.45NS W/KCL 20MEQ 20 MEQ/1,000 ML BAG IV SCH ×3 (10:34→22:29)
[2019-02-27] MEDS: KETOROLAC 30 MG/ML INJ IV PRN ×2 (10:39→22:56)
[2019-02-27] MEDS ORDERED: INSULIN -REGULAR HUMAN 50 UNIT/0.5 ML ML SQ SCH (11:30)
[2019-02-27] MEDS ORDERED: ERTAPENEM SODIUM 1 GM VIAL IVPB ONE (14:30)
[2019-02-27] MEDS ORDERED: HYDRALAZINE HCL 20 MG/ML VIAL IV PRN (14:31)
--- NOTE | 2019-02-27 14:37 | P.PN ---
Subjective Date of Service: 02/27/19 Primary Care Provider: Dr. Petersen Chief Complaint: complicated diverticulitis Subjective: Other (Pain better controlled) Physical Examination - Vital Signs Temperature: 98.5 F Blood Pressure: 123/67 Pulse: 70 Respirations: 20 Pulse Ox (%): 95 - Physical Exam General: Alert, In no apparent distress, Oriented x3, Cooperative HEENT: Atraumatic Neck: Supple Respiratory: Clear to auscultation bilaterally, Normal air movement Cardiovascular: Normal pulses, Regular rate/rhythm Gastrointestinal: Hypoactive, No rebound, No guarding, Distended (Minimal distension), Tenderness (Pain to the left lower quadrant) Musculoskeletal: No tenderness, No warmth Integumentary: No erythema, No warmth, No cyanosis Neurological: Normal speech, Normal strength at 5/5 x4 extr, Normal tone, Normal affect - Studies Laboratory Data (last 24 hrs) 02/26/19 19:10: Creatinine 1.26 02/26/19 19:10: WBC 11.1 H, Hgb 16.0, Hct 47.2, Plt Count 174 02/26/19 19:10: Sodium 141, Potassium 3.8, BUN 11, Creatinine 1.26, Glucose 95, Total Bilirubin 1.0, AST 15, ALT 48, Alkaline Phosphatase 65, Lipase 105 Medications List Reviewed: Yes Assessment & Plan Discharge Plan: Home Plan to discharge in: Greater than 2 days Physician Review Additional Text: Impression: Recurrent diverticulitis complicated with pneumoperitoneum Hypertension Obesity, BMI 31 Plan: Recurrent diverticulitis complicated with pneumoperitoneum: Case discussed with surgery. Continue with IV antibiotic therapy. IV antibiotics adjusted. Patient to get 1 dose of Invanz IV. Continue Levaquin/Flagyl. Surgery has adjusted IV fluids. Continue monitor lab closely. Continue monitor exam closely. Patient reports history of diverticulitis in the past. Patient also reports history of colonoscopy about a year ago. If his condition does not improve patient may require surgical intervention. Will provide DVT prophylaxis -Lovenox. Encourage ambulation Hypertension: Will provide medication as needed Obesity, BMI 31: Will address lifestyle modification education. Time Spent Managing Pts Care (In Minutes): 55
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
[2019-02-27] MEDS ORDERED: ERTAPENEM NA 1 GM in NA CHLORIDE 0.9% 100 ML IVPB ONE (15:00)
[2019-02-27] MEDS ORDERED: PIPER/TAZO/NS 3.375gm 3.375 GM/100 ML BAG IVPB SCH (17:00)
[2019-02-27] MEDS: ENOXAPARIN 40 MG/0.4 ML SQ SCH (17:05)
[2019-02-27] MEDS: INSULIN -REGULAR HUMAN 50 UNIT/0.5 ML ML SQ SCH (18:00)
[2019-02-28] MEDS: METRONIDAZOLE 500mg IVPB 500 MG/100 ML BAG IV SCH ×3 (01:20→16:41)
[2019-02-28] MEDS: Levofloxacin 750mg IV 750 MG/150 ML BAG IV SCH (02:58)
[2019-02-28 05:29] LABS: Absolute Lymphocytes (CBC) 1.7 K/uL (0.7-4.9); Absolute Monocytes 0.9 K/uL (0.1-1.3); Absolute Neutrophil 5.1 K/uL (1.8-8.0); Basophils % 0.5 % (0-1.3); Eosinophils % 1.7 % (0-4.4); Hematocrit 42.3 % (39.6-49.0); Lymphocytes % 21.7 % (15.3-44.8); MPV 8.3 fL (7.6-11.3); Monocytes % 11.8 % (3.3-12.3); RBC Red Blood Cell Count 4.68 M/uL (4.33-5.43)
[2019-02-28 05:48] LABS: Magnesium 2.4 mg/dL (1.8-2.4); Phosphorus 2.9 mg/dL (2.5-4.9); Potassium 4.2 mmol/L (3.5-5.1)
[2019-02-28] MEDS: INSULIN -REGULAR HUMAN 50 UNIT/0.5 ML ML SQ SCH ×4 (06:00→18:00)
[2019-02-28] MEDS: D5.45NS W/KCL 20MEQ 20 MEQ/1,000 ML BAG IV SCH ×3 (08:16→19:46)
[2019-02-28 08:29] VITALS: O2SAT 95
[2019-02-28] MEDS ORDERED: FAMOTIDINE 20 MG/2 ML VIAL IV SCH (09:00)
--- NOTE | 2019-02-28 10:31 | P.PN ---
Subjective Date of Service: 02/28/19 Primary Care Provider: Dr. Petersen Chief Complaint: complicated diverticulitis Subjective: Doing well Physical Examination - Vital Signs Temperature: 98.0 F Blood Pressure: 153/75 Pulse: 75 Respirations: 18 Pulse Ox (%): 95 - Physical Exam General: Alert, In no apparent distress, Cooperative HEENT: Atraumatic Neck: Supple Respiratory: Clear to auscultation bilaterally, Normal air movement Cardiovascular: Normal pulses, Regular rate/rhythm Gastrointestinal: Normal bowel sounds, Soft and benign, Non-distended, No masses , No rebound, No guarding Musculoskeletal: No erythema, No tenderness, No warmth Integumentary: No tenderness/swelling, No erythema, No warmth, No cyanosis Neurological: Normal speech, Normal strength at 5/5 x4 extr, Normal tone, Normal affect - Studies Medications List Reviewed: Yes Assessment & Plan Discharge Plan: Home Plan to discharge in: 24 Hours Physician Review Additional Text: Impression: Recurrent diverticulitis complicated with pneumoperitoneum Hypertension Obesity, BMI 31 Plan: Recurrent diverticulitis complicated with pneumoperitoneum: Case discussed with surgery. Patient continues to improve. Surgery will advance diet. If improved patient can be discharged as early as today. Patient will require antibiotics for at least 2 weeks. Hypertension: Will review and restart home medication Obesity, BMI 31: Will continue to address lifestyle modification education. Time Spent Managing Pts Care (In Minutes): 55
[2019-02-28] MEDS: ENOXAPARIN 40 MG/0.4 ML SQ SCH (16:41)
[2019-02-28] MEDS ORDERED: TRAMADOL HCL 50 MG TAB PO PRN (18:00)
[2019-02-28] MEDS ORDERED: HYDROCODONE/APAP 7.5/325 MG TAB PO PRN (18:01)
[2019-02-28] MEDS: ACETAMINOPHEN 500 MG TAB PO PRN (18:27)
[2019-02-28] MEDS: FAMOTIDINE 20 MG TAB PO SCH (21:39)
[2019-03-01] MEDS: METRONIDAZOLE 500mg IVPB 500 MG/100 ML BAG IV SCH ×2 (00:09→07:32)
[2019-03-01] MEDS: Levofloxacin 750mg IV 750 MG/150 ML BAG IV SCH (01:14)
[2019-03-01] MEDS: D5.45NS W/KCL 20MEQ 20 MEQ/1,000 ML BAG IV SCH ×2 (02:27→08:40)
[2019-03-01] MEDS: ACETAMINOPHEN 500 MG TAB PO PRN ×2 (04:45→12:15)
[2019-03-01 04:54] VITALS: TEMP 97.8
[2019-03-01 06:12] LABS: Absolute Lymphocytes (CBC) 1.4 K/uL (0.7-4.9); Absolute Monocytes 0.8 K/uL (0.1-1.3); Absolute Neutrophil 4.9 K/uL (1.8-8.0); Basophils % 0.4 % (0-1.3); Eosinophils % 2.2 % (0-4.4); Hematocrit 40.2 % (39.6-49.0); Lymphocytes % 19.1 % (15.3-44.8); MPV 9.2 fL (7.6-11.3); Monocytes % 10.9 % (3.3-12.3); RBC Red Blood Cell Count 4.43 M/uL (4.33-5.43)
[2019-03-01 06:26] LABS: Magnesium 2.3 mg/dL (1.8-2.4); Potassium 3.9 mmol/L (3.5-5.1)
[2019-03-01] MEDS ORDERED: POTASSIUM 25 MEQ EFFERV TAB PO ONE (06:40)
[2019-03-01] MEDS: INSULIN -REGULAR HUMAN 50 UNIT/0.5 ML ML SQ SCH ×3 (07:30→11:30)
[2019-03-01] MEDS: FAMOTIDINE 20 MG TAB PO SCH (07:31)
--- NOTE | 2019-03-01 08:32 | P.PN ---
Subjective Date of Service: 03/01/19 Primary Care Provider: Dr. Petersen Chief Complaint: complicated diverticulitis Subjective: Improving (no pain, tolerated diet, no nausea, no tenderness, good bowel function) Physical Examination - Vital Signs Temperature: 97.8 F Blood Pressure: 123/75 Pulse: 68 Respirations: 16 Pulse Ox (%): 95 - Physical Exam General: Alert, In no apparent distress, Cooperative Gastrointestinal: Soft and benign, Non-distended, No ascites, No tenderness, No masses, No rebound, No guarding - Studies Medications List Reviewed: Yes Assessment And Plan - Current Problems (Diagnosis) (1) Diverticulitis of large intestine with complication Current Visit: Yes Status: Acute Plan: - ok to DC home from surgical standpoint - low residue diet - supplement with boost ensure - 2 weeks of levaquin / flagyl - need complete colonoscopy when flare resolved - follow up to discuss surgery following colonoscopy Physician Review Additional Text: Impression: Recurrent diverticulitis complicated with pneumoperitoneum Hypertension Obesity, BMI 31 Plan: Recurrent diverticulitis complicated with pneumoperitoneum: Case discussed with surgery. Patient continues to improve. Surgery will advance diet. If improved patient can be discharged as early as today. Patient will require antibiotics for at least 2 weeks. Hypertension: Will review and restart home medication Obesity, BMI 31: Will continue to address lifestyle modification education.
--- NOTE | 2019-03-01 08:59 | P.DS ---
Admission Date: 02/26/19 Discharge Date: 03/01/19 Primary Care Provider: Dr. Petersen Disposition: ROUTINE DISCHARGE Discharge Condition: GOOD Reason for Admission: complicated diverticulitis Consultations: Surgery-Dr. Hutchison Procedures: CT scan: FINDINGS: The lung bases are clear. Diffuse fatty liver is present. The spleen, pancreas, adrenal glands and kidneys are within normal limits. Mild pneumoperitoneum is present. There is inflammatory changes in the left lower quadrant surrounding short segment of the sigmoid colon. Multiple diverticula are present. Pockets of air are present along the left pericolic gutter. The appendix is normal. No evidence of significant lymphadenopathy. No significant change in right iliac wing lucent lesions. IMPRESSION: Acute left lower quadrant diverticulitis is suspected, mild to moderate in severity. Extraluminal air is present along the left pericolic gutter as well as a small volume of pneumoperitoneum, likely all related to this process. Followup colonoscopy would be suggested for direct visualization. Medical Problem List: Recurrent left-sided diverticulitis complicated with pneumoperitoneum Hypertension Obesity, BMI 31 Brief History of Present Illness: 38-year-old male presented to the emergency room with left lower quadrant abdominal pain. Patient with prior history of diverticulitis. Patient was found to have recurrent diverticulitis with pneumoperitoneum. Patient was admitted for treatment. Hospital Course: Patient presented with left lower quadrant abdominal pain secondary to recurrent left-sided diverticulitis. This was complicated with pneumoperitoneum. Patient was admitted for treatment. Patient seen and evaluated by surgery. No surgical intervention was required. Patient improved with IV fluids and antibiotics. At discharge he is without any significant abdominal pain, nausea and vomiting. Patient has tolerated diet. Patient cleared by surgery to discharge. At discharge patient will continue with a full liquid diet to be advanced to a low residue soft diet. Patient may supplement with Ensure or Boost. At discharge he will continue with Levaquin 500 mg daily and Flagyl 500 mg 3 times a day for 14 days. Patient will need follow up with surgery in 2 weeks. Patient will require full colonoscopy to further evaluate his condition in the near future. Patient will likely require surgical intervention as an outpatient after colonoscopy evaluation. This can be further addressed by surgery. Patient will be provided a limited supply of pain medication-tramadol 3 times a day as needed for pain. If pain persists with fever and abdominal distention, he is to return to the hospital. Patient with underlying hypertension. Patient may continue with his medication of triamterene/hydrochlorothiazide 1 pill daily. Recommendation is to maintain blood pressures less 150/80. Patient also takes medication for insomnia. Patient may continue with his medication. Lifestyle modification education will be provided. Vital Signs/Physical Exam: Temp Pulse Resp BP Pulse Ox 97.8 F 68 16 123/75 95 03/01/19 08:32 03/01/19 08:32 03/01/19 08:32 03/01/19 08:32 03/01/19 08:32 General: Alert, In no apparent distress, Oriented x3, Cooperative HEENT: Atraumatic Neck: Supple Respiratory: Clear to auscultation bilaterally, Normal air movement Cardiovascular: Normal pulses, Regular rate/rhythm Gastrointestinal: Normal bowel sounds, Soft and benign, Non-distended, No tenderness, No masses, No rebound, No guarding Musculoskeletal: No erythema, No tenderness, No warmth Integumentary: No tenderness/swelling, No erythema, No warmth, No cyanosis Neurological: Normal speech, Normal strength at 5/5 x4 extr, Normal tone, Normal affect Laboratory Data at Discharge: WBC 7.3 K/uL (4.3-10.9) 03/01/19 05:18 Hgb 13.8 g/dL (13.6-17.9) 03/01/19 05:18 Hct 40.2 % (39.6-49.0) 03/01/19 05:18 Plt Count 190 K/uL (152-406) 03/01/19 05:18 Sodium 139 mmol/L (136-145) 03/01/19 05:18 Potassium 3.9 mmol/L (3.5-5.1) 03/01/19 05:18 BUN 14 mg/dL (7-18) 03/01/19 05:18 Creatinine 1.12 mg/dL (0.55-1.3) 03/01/19 05:18 Glucose 128 mg/dL (74-106) H 03/01/19 05:18 Phosphorus 3.0 mg/dL (2.5-4.9) 03/01/19 05:18 Magnesium 2.3 mg/dL (1.8-2.4) 03/01/19 05:18 Total Bilirubin 1.0 mg/dL (0.2-1.0) 02/27/19 03:21 AST 13 U/L (15-37) L 02/27/19 03:21 ALT 38 U/L (12-78) 02/27/19 03:21 Alkaline Phosphatase 60 U/L (45-117) 02/27/19 03:21 Lipase 105 U/L (73-393) 02/26/19 19:10 Home Medications: Temazepam 60 mg PO BEDTIME 02/27/19 Triamterene/Hydrochlorothiazid [Triamterene-Hctz 37.5-25 mg Cp] 1 tab PO DAILY 02/27/19 Levofloxacin [Levaquin] 500 mg PO DAILY #14 tablet 03/01/19 Tramadol HCl [Ultram] 50 mg PO TID PRN #15 tablet 03/01/19 levoFLOXacin [Levaquin] 500 mg PO DAILY #14 tab 03/01/19 New Medications: levoFLOXacin [Levaquin] 500 mg PO DAILY #14 tab Levofloxacin [Levaquin] 500 mg PO DAILY #14 tablet Tramadol HCl [Ultram] 50 mg PO TID PRN #15 tablet PRN Reason: Pain Scale 2-4 (Mild) Patient Discharge Instructions: 1. Patient will follow up with his PCP in 1 week to follow up this hospitalization. 2. Patient presented with left lower quadrant abdominal pain secondary to recurrent left-sided diverticulitis. This was complicated with pneumoperitoneum. Patient was admitted for treatment. Patient seen and evaluated by surgery. No surgical intervention was required. Patient improved with IV fluids and antibiotics. At discharge he is without any significant abdominal pain, nausea and vomiting. Patient has tolerated diet. Patient cleared by surgery to discharge. At discharge patient will continue with a full liquid diet to be advanced to a low residue soft diet. Patient may supplement with Ensure or Boost. At discharge he will continue with Levaquin 500 mg daily and Flagyl 500 mg 3 times a day for 14 days. Patient will need follow up with surgery in 2 weeks. Patient will require full colonoscopy to further evaluate his condition in the near future. Patient will likely require surgical intervention as an outpatient after colonoscopy evaluation. This can be further addressed by surgery. Patient will be provided a limited supply of pain medication-tramadol 3 times a day as needed for pain. If pain persists with fever and abdominal distention, he is to return to the hospital. 3. Patient with underlying hypertension. Patient may continue with his medication of triamterene/hydrochlorothiazide 1 pill daily. Recommendation is to maintain blood pressures less 150/80. 4. Patient also takes medication for insomnia. Patient may continue with his medication. 5. Lifestyle modification education will be provided. Diet: Full liquid diet then advance to low residue soft Activity: Ad faina Time spent managing pt's care (in minutes): 55
[2019-03-01] MEDS ORDERED: MAXZIDE (HCTZ 25/TRIAMTERENE 37.5MG) TAB PO SCH (09:00)
[2019-03-01 12:31] VITALS: BP 116/74
== END 2019-03-01 12:47 | disposition home or self-care (01) | DRG 392 ==
LOC: ER 18:24 → ERHOLD 23:44 → 4TH 02-27 00:57
PROVIDERS: ADMIT Internal Medicine; ATTEND Internal Medicine
DX: K57.32 Diverticulitis of large intestine without perforation or abscess without bleeding (principal); K66.8 Other specified disorders of peritoneum; I10 Essential (primary) hypertension; E66.9 Obesity, unspecified; Z68.31 Body mass index [BMI] 31.0-31.9, adult; G47.00 Insomnia, unspecified
CPT/HCPCS: 36415; 74177; 80048; 80053; 80076; 81003; 82962; 83605; 83690; 83735; 84100; 85025; 96361; 96365; 96366; 96368; 96375; 99285; J0744; J1335; J1650; J2270; J2405; J2543; J7030; Q9967

== ENCOUNTER 2019-06-10 07:20 | Day surgery (SDC) | payer OTHER ==
[2019-06-10] MEDS ORDERED: Ringers Lactate 1,000 ML IV ONE (07:59)
[2019-06-10] MEDS ORDERED: PROPOFOL 200 MG/20 ML VIAL IV ONE ×2 (08:18→08:52)
[2019-06-10] MEDS ORDERED: LIDOCAINE 1% MPF 2 ML AMPULE ONE (08:18)
--- NOTE | 2019-06-10 08:58 | ENDO RPT ---
[address], [address] COLONOSCOPY PROCEDURE REPORT EXAM DATE: 06/10/2019 PATIENT NAME: Fausto Toro MR #: [id number] BIRTHDATE: 1980 ATTENDING: Paul Hutchison DR STATUS: outpatient ASSEMBLING MACHINE OPERATOR: Thony Pham and Ana Jauregui RN INDICATIONS: The patient is a 38 yr old Male here for a colonoscopy due to diverticulitis PROCEDURE PERFORMED: Colonoscopy and Screening Colonoscopy MEDICATIONS: Per Anesthesia. ESTIMATED BLOOD LOSS: None CONSENT: The patient understands the risks and benefits of the procedure and understands that these risks include, but are not limited to: sedation, allergic reaction, infection, perforation and/or bleeding. Alternative means of evaluation and treatment include, among others: physical exam, x-rays, and/or surgical intervention. The patient elects to proceed with this endoscopic procedure. DESCRIPTION OF PROCEDURE: During intra-op preparation period all mechanical medical equipment was checked for proper function. Hand hygiene and appropriate measures for infection prevention was taken. Procedure, possible complications, alternatives including, but not limited to possibility of bleeding, perforation, tear, infection, sepsis, need for surgery, need for blood transfusion, were explained to the patient. After the risks, benefits and alternatives of the procedure were thoroughly explained, Informed consent was verified, confirmed and timeout was successfully executed by the treatment team. The patient was placed in the left lateral position. A digital rectal exam was performed and revealed internal hemorrhoids. After appropriate level of anesthesia, the scope was passed. The [id number] ([id number]) endoscope was introduced through the anus and advanced to the cecum, which was identified by both the appendix and ileocecal valve. The quality of the prep was poor. The instrument was then slowly withdrawn as the colon was fully examined. Scope withdrawal time was 15 minutes. COLON FINDINGS: There was moderate diverticulosis noted in the sigmoid colon with associated inflammatory changes, petechiae and luminal narrowing. No bleeding was noted from the diverticulosis. Small internal hemorrhoids were found. Retroflexed views revealed no abnormalities. The scope was then completely withdrawn from the patient and the procedure terminated. ADVERSE EVENTS: There were no complications. IMPRESSIONS: 1. There was moderate diverticulosis noted in the sigmoid colon 2. Small internal hemorrhoids RECOMMENDATIONS: 1. avoid NSAIDS for 2 weeks 2. follow-up: office 2 week(s) 3. Monitor for any evidence of rectal bleeding. 4. hemorrhoidal hygiene 5. yearly hemoquant 6. increase dietary water 7. low fiber / diverticular diet RECALL: Return in 3 year(s) for Colonoscopy, pending biopsy results. Paul Hutchison DR eSigned: Paul Hutchison DR 06/10/2019 8:57 AM cc: CPT CODES: ICD9 CODES: PATIENT NAME: Fausto Toro MR#: [id number]
[2019-06-10 09:19] VITALS: BP 114/67; TEMP 98.4; O2SAT 97
== END 2019-06-10 09:38 | disposition home or self-care (01) ==
LOC: OR 07:20
PROVIDERS: ATTEND Surgery
PROC: 0DJD8ZZ Inspection of Lower Intestinal Tract, Via Natural or Artificial Opening Endoscopic (ICD-10-PCS; principal; 2019-06-10 08:30)
DX: K57.30 Diverticulosis of large intestine without perforation or abscess without bleeding (principal); K64.8 Other hemorrhoids; I10 Essential (primary) hypertension; Z87.19 Personal history of other diseases of the digestive system
CPT/HCPCS: J2001; J2704

== ENCOUNTER 2019-07-09 10:44 | Emergency (ER) | payer OTHER ==
[2019-07-09] MEDS ORDERED: MORPHINE 4 MG/ML SYR ONE (11:11)
[2019-07-09] MEDS ORDERED: NA CHLORIDE 0.9% 500 ML ONE (11:11)
[2019-07-09] MEDS ORDERED: ONDANSETRON 4 MG/2 ML VIAL ONE (11:11)
[2019-07-09 11:16] LABS: Absolute Lymphocytes (CBC) 2.2 K/uL (0.7-4.9); Basophils % 0.4 % (0-1.3); Hematocrit 49.6 % (39.6-49.0); Lymphocytes % 17.7 % (15.3-44.8); MPV 8.7 fL (7.6-11.3); RBC Red Blood Cell Count 5.57 M/uL (4.33-5.43)
[2019-07-09 11:42] LABS: Albumin 4.4 g/dL (3.4-5.0); Bilirubin Direct 0.1 mg/dL (0-0.2); Bilirubin Total 0.6 mg/dL (0.2-1.0); Potassium 4.3 mmol/L (3.5-5.1); Protein, Total 8.3 g/dL (6.4-8.2)
--- NOTE | 2019-07-09 13:27 | RAD REPORT ---
EXAM DESCRIPTION: CT - Abdomen Pelvis W Contrast - 07/09/2019 1:02 pm CLINICAL HISTORY: abd pain, known diverticulitis with abscess COMPARISON: May 29, 2019 CT study, March 2019 CT study TECHNIQUE: Biphasic, helical CT imaging of the abdomen and pelvis was performed following 100 ml non -ionic IV contrast. Oral contrast was given. All CT scans are performed using dose optimization technique as appropriate and may include automated exposure control or mA/KV adjustment according to patient size. FINDINGS: No suspicious findings in the lung bases. Fatty infiltration pattern of the liver is again noted. No focal liver lesion. Spleen and pancreas sh ow no acute findings. Gallbladder and biliary tree are also without suspicious finding. Symmetric renal function is seen with no hydronephrosis or suspicious renal mass. No pyelonephritis o r acute parenchymal process. No bladder abnormalities. No adrenal abnormalities. No stomach or small bowel acute findings. From cecum through the descending colon no acute findings n oted. Patient has moderate sigmoid diverticulosis. In the proximal to midportion of the sigmoid colon there is a 5 centimeter long segment of circumferential wall thickening. Edematous/inflammatory stra nding is seen in the adjacent fat. No abscess or extraluminal air. This represents a different site t leon was noted on the comparison examinations. At the site of prior acute diverticulitis there is only trace remnant stranding. No active disease suspected at the folds site of diverticulitis. Distal sig moid colon and rectum show no suspicious findings. No free air, free fluid or pneumatosis. No other site of inflammatory stranding. No hernia, mass o r bulky lymphadenopathy. No acute bone finding. Cystic area in the right ilium has not changed. IMPRESSION: Acute diverticulitis is present in the proximal to midportion of the sigmoid colon. Ther e is no abscess, free air or other emergent component. The acute diverticulitis site is distal to the site of diverticulitis detailed on the comparison stud ies. At the old site of diverticulitis there is only trace stranding in the adjacent fat and no activ e process of the colon suspected. Fatty infiltration of the liver.
[2019-07-09] MEDS ORDERED: METRONIDAZOLE 500mg IVPB 500 MG/100 ML BAG IV ONE (13:54)
[2019-07-09] MEDS ORDERED: Levofloxacin 750mg IV 750 MG/150 ML BAG IV ONE (13:54)
--- NOTE | 2019-07-09 14:18 | ER ---
Nurse's Notes [facility] Cem Name: Fausto Toro Age: 38 yrs Sex: Male : 1980 Arrival Date: 07/09/2019 Time: 10:46 Bed 3 Private MD: Paul Hutchison Diagnosis: Diverticulitis of large intestine without perforation or abscess without bleeding Presentation: 07/09 10:56 Presenting complaint: Patient states: I have a dx diverticulitis with abscess and am la1 supposed to have surgery next month but the pain got significantly worse yesterday. In the past I have had a ruptured colon and this pain feels very similar. Transition of care: patient was not received from another setting of care. Onset of symptoms was July 09, 2019. Risk Assessment: Do you want to hurt yourself or someone else? Patient reports no desire to harm self or others. Initial Sepsis Screen: Does the patient meet any 2 criteria? No. Patient's initial sepsis screen is negative. Does the patient have a suspected source of infection? No. Patient's initial sepsis screen is negative. Care prior to arrival: None. 10:56 Method Of Arrival: Ambulatory la1 10:56 Acuity: ALDAIR 2 la1 Historical: - Allergies: 10:55 NKA; la1 - PMHx: 10:55 Hypertension; Diverticulitis; la1 - Immunization history:: Adult Immunizations up to date. - Social history:: Smoking status: Patient/guardian denies using tobacco. - Ebola Screening: : No symptoms or risks identified at this time. - Family history:: not pertinent. - Hospitalizations: : No recent hospitalization is reported. Screenin:05 Abuse screen: Denies threats or abuse. Nutritional screening: No deficits noted. aa5 Tuberculosis screening: No symptoms or risk factors identified. Fall Risk None identified. Assessment: 11:05 General: Appears comfortable, Behavior is calm, cooperative. Pain: Complains of pain in aa5 left lower quadrant Pain does not radiate. Pain currently is 10 out of 10 on a pain scale. Quality of pain is described as sharp, tender, Pain began 2 months ago and got worse yesterday Is continuous. Neuro: Level of Consciousness is awake, alert, obeys commands, Oriented to person, place, time, situation. Cardiovascular: Heart tones S1 S2 present Patient's skin is warm and dry. Rhythm is regular. Respiratory: Airway is patent Respiratory effort is even, unlabored, Respiratory pattern is regular, symmetrical. GI: Abdomen is round Bowel sounds present X 4 quads. Abd is soft X 4 quads Abd is non tender in right upper quadrant and right lower quadrant Abdomen is tender to palpation in left upper quadrant and left lower quadrant Reports diarrhea, nausea, vomiting. : No signs and/or symptoms were reported regarding the genitourinary system. EENT: No signs and/or symptoms were reported regarding the EENT system. Derm: Skin is pink, warm \T\ dry. Musculoskeletal: Range of motion: intact in all extremities. 11:15 Reassessment: Pt finished CT oral contrast. . aa5 11:48 Reassessment: Patient is alert, oriented x 3, equal unlabored respirations, skin aa5 warm/dry/pink. Awaiting CT scan, pt notified of wait time. . Pain: Pain currently is 5 out of 10 on a pain scale. 13:15 Reassessment: Patient is alert, oriented x 3, equal unlabored respirations, skin aa5 warm/dry/pink. Pt back from radiology . 13:32 Reassessment: Dr. Emery at bedside discussing plan of care. 7 13:58 Reassessment: Patient is alert, oriented x 3, equal unlabored respirations, skin aa5 warm/dry/pink. 13:58 Pain: Pain currently is 5 out of 10 on a pain scale. aa5 14:30 Reassessment: Patient is alert, oriented x 3, equal unlabored respirations, skin aa5 warm/dry/pink. Awaiting antibiotics to finish infusing for d/c home . 15:47 Reassessment: Patient is alert, oriented x 3, equal unlabored respirations, skin aa5 warm/dry/pink. Vital Signs: 10:55 BP 133 / 91; Pulse 106; Resp 16; Temp 97.7; Pulse Ox 98% on R/A; Weight 115.67 kg; la1 Height 6 ft. 3 in. (190.50 cm); Pain 10/10; 11:45 BP 135 / 84; Pulse 90; Resp 16 S; Pulse Ox 98% on R/A; aa5 13:15 BP 134 / 88; Pulse 87; Resp 18 S; Pulse Ox 97% on R/A; Pain 5/10; aa5 15:45 BP 127 / 79; Pulse 84; Resp 16 S; Pulse Ox 98% on R/A; Pain 3/10; aa5 10:55 Body Mass Index 31.87 (115.67 kg, 190.50 cm) la1 ED Course: 10:46 Patient arrived in ED. ag5 10:46 Paul Hutchison MD is Private Physician. ag5 10:55 Arm band placed on right wrist. la1 10:57 Triage completed. la1 11:00 Spencer Emery MD is Attending Physician. rn 11:03 Patricia Mirza RN is Primary Nurse. aa5 11:05 Patient has correct armband on for positive identification. Bed in low position. Call aa5 light in reach. Side rails up X2. 11:05 Initial lab(s) drawn, by ED staff, sent to lab. Inserted saline lock: 18 gauge in left aa5 antecubital area, using aseptic technique. Blood collected. IV inserted by Matthieu Man RN. 11:05 No provider procedures requiring assistance completed. aa5 13:05 CT Abd/Pelvis - PO and IV Contrast In Process Unspecified. EDMS 14:16 Paul Hutchison MD is Referral Physician. rn 15:47 IV discontinued, intact, bleeding controlled, No redness/swelling at site. Pressure aa5 dressing applied. Administered Medications: 11:12 Drug: NS 0.9% 500 ml Route: IV; Rate: bolus; Site: left antecubital; jl7 12:00 Follow up: IV Status: Completed infusion; IV Intake: 500ml aa5 11:12 Drug: Zofran 4 mg Route: IVP; Site: left antecubital; jl7 11:30 Follow up: Response: No adverse reaction aa5 11:16 Drug: morphine 4 mg Route: IVP; Site: left antecubital; jl7 11:30 Follow up: Response: No adverse reaction aa5 13:58 Drug: Flagyl 500 mg Volume: 100 ml; Route: IVPB; Rate: 200 ml/hr; Infused Over: 30 aa5 mins; Site: left antecubital; 14:13 Follow up: Response: No adverse reaction aa5 14:28 Follow up: Response: No adverse reaction; IV Status: Completed infusion aa5 14:13 Drug: LevaQUIN 750 mg Volume: 150 ml; Route: IVPB; Infused Over: 90 mins; Site: left aa antecubital; 14:30 Follow up: Response: No adverse reaction aa5 15:47 Follow up: Response: No adverse reaction; IV Status: Completed infusion aa5 Intake: 12:00 IV: 500ml; Total: 500ml. aa5 Outcome: 14:16 Discharge ordered by . rn 15:47 Discharged to home ambulatory, with family. aa5 15:47 Condition: stable 15:47 Discharge instructions given to patient, Instructed on discharge instructions, follow up and referral plans. medication usage, Demonstrated understanding of instructions, follow-up care, medications, Prescriptions given X 4. 15:49 Patient left the ED. aa5 Signatures: Dispatcher [employer] EDMS Spencer Emery MD MD rn Calderon, Audri RN RN aa5 Matthieu Man RN RN Bruce Churchill RN RN jl7 Sharona Bhat ag5 Corrections: (The following items were deleted from the chart) 11:52 11:51 Reassessment: Pt finished CT oral contrast. . aa5 aa5
--- NOTE | 2019-07-09 14:19 | EDPHYS ---
Physician Documentation [facility] Name: Fausto Toro Age: 38 yrs Sex: Male : 1980 Arrival Date: 07/09/2019 Time: 10:46 Bed 3 Private MD: Paul Hutchison ED Physician Spencer Emery HPI: 07/09 11:25 This 38 yrs old Male presents to ER via Ambulatory with complaints of rn Abdominal Pain. 11:25 The patient presents with abdominal pain in the left lower quadrant. Onset: The rn symptoms/episode began/occurred at an unknown time. The symptoms do not radiate. Associated signs and symptoms: Pertinent positives: anorexia, Pertinent negatives: diarrhea, fever, testicular pain, vomiting, vomiting blood. The symptoms are described as achy, crampy, sharp. Modifying factors: The symptoms are alleviated by remaining still, the symptoms are aggravated by movement, touching the area. Severity of pain: At its worst the pain was moderate in the emergency department the pain is unchanged. The patient has experienced similar episodes in the past. Reports multiple episodes of diverticulitis in past with perforation and abscess, has seen Dr. Hutchison for it, no surgery performed yet, took abx and admitted at this hospital. Reports planned surgery soon, but abd pain worsened over last few days. States feels similar to previous perforation. . Historical: - Allergies: 10:55 NKA; la1 - PMHx: 10:55 Hypertension; Diverticulitis; la1 - Immunization history:: Adult Immunizations up to date. - Social history:: Smoking status: Patient/guardian denies using tobacco. - Ebola Screening: : No symptoms or risks identified at this time. - Family history:: not pertinent. - Hospitalizations: : No recent hospitalization is reported. ROS: 11:25 Constitutional: Negative for fever, and weight loss, + chills Eyes: Negative for rn injury, pain, redness, and discharge, Neck: Negative for injury, pain, and swelling, Cardiovascular: Negative for chest pain, palpitations, and edema, Respiratory: Negative for shortness of breath, cough, wheezing, and pleuritic chest pain, Abdomen/GI: + abd pain and anorexia MS/Extremity: Negative for injury and deformity, Skin: Negative for injury, rash, and discoloration, Neuro: Negative for headache, weakness, numbness, tingling, and seizure. Exam: 11:25 Constitutional: This is a well developed, well nourished patient who is awake, alert, rn and in no acute distress. Head/Face: Normocephalic, atraumatic. Eyes: Pupils equal round and reactive to light, extra-ocular motions intact. Lids and lashes normal. Conjunctiva and sclera are non-icteric and not injected. Cornea within normal limits. Periorbital areas with no swelling, redness, or edema. ENT: MMM Cardiovascular: tachycardic, regular Respiratory: No increased work of breathing, no retractions or nasal flaring. Abdomen/GI: soft, + LLQ tenderness with guarding, no rebound MS/ Extremity: Pulses equal, no cyanosis. Neurovascular intact. Full, normal range of motion. Equal circumference. Neuro: Awake and alert, GCS 15, oriented to person, place, time, and situation. Vital Signs: 10:55 BP 133 / 91; Pulse 106; Resp 16; Temp 97.7; Pulse Ox 98% on R/A; Weight 115.67 kg; la1 Height 6 ft. 3 in. (190.50 cm); Pain 10/10; 11:45 BP 135 / 84; Pulse 90; Resp 16 S; Pulse Ox 98% on R/A; aa5 13:15 BP 134 / 88; Pulse 87; Resp 18 S; Pulse Ox 97% on R/A; Pain 5/10; aa5 15:45 BP 127 / 79; Pulse 84; Resp 16 S; Pulse Ox 98% on R/A; Pain 3/10; aa5 10:55 Body Mass Index 31.87 (115.67 kg, 190.50 cm) la1 MDM: 11:01 Patient medically screened. rn 14:15 Differential diagnosis: diverticulitis, non-specific abd pain. Data reviewed: vital rn signs, nurses notes, lab test result(s), radiologic studies, CT scan, and as a result, I will discharge patient. Counseling: I had a detailed discussion with the patient and/or guardian regarding: the historical points, exam findings, and any diagnostic results supporting the discharge/admit diagnosis, lab results, radiology results, the need for outpatient follow up, to return to the emergency department if symptoms worsen or persist or if there are any questions or concerns that arise at home. Response to treatment: the patient's symptoms have markedly improved after treatment, and as a result, I will discharge patient. Special discussion: Based on the patient's Hx, exam, and Dx evaluation, there is no indication for emergent surgery or inpatient Tx. It is understood by the patient/guardian that if the Sx's persist or worsen they need to return immediately for re-evaluation. I discussed with the patient/guardian in detail that at this point there is no indication for admission to the hospital. It is understood, however, that if the symptoms persist or worsen the patient needs to return immediately for re-evaluation. 07/09 11: Order name: Basic Metabolic Panel; Complete Time: rn 07/09 11: Order name: CBC with Diff; Complete Time: rn 07/09 11: Order name: Creatinine for Radiology; Complete Time: rn 07/09 11: Order name: Hepatic Function; Complete Time: rn 07/09 11: Order name: Lipase; Complete Time: rn 07/09 11: Order name: CT Abd/Pelvis - PO and IV Contrast; Complete Time: 13:29 rn 07/09 11:01 Order name: IV Saline Lock; Complete Time: 11: rn 07/09 11:01 Order name: Labs collected and sent; Complete Time: 11: rn 07/09 11:10 Order name: NPO; Complete Time: 11: rn Administered Medications: 11:12 Drug: NS 0.9% 500 ml Route: IV; Rate: bolus; Site: left antecubital; jl7 12:00 Follow up: IV Status: Completed infusion; IV Intake: 500ml aa5 11:12 Drug: Zofran 4 mg Route: IVP; Site: left antecubital; jl7 11:30 Follow up: Response: No adverse reaction aa5 11:16 Drug: morphine 4 mg Route: IVP; Site: left antecubital; jl7 11:30 Follow up: Response: No adverse reaction aa5 13:58 Drug: Flagyl 500 mg Volume: 100 ml; Route: IVPB; Rate: 200 ml/hr; Infused Over: 30 aa5 mins; Site: left antecubital; 14:13 Follow up: Response: No adverse reaction aa5 14:28 Follow up: Response: No adverse reaction; IV Status: Completed infusion aa5 14:13 Drug: LevaQUIN 750 mg Volume: 150 ml; Route: IVPB; Infused Over: 90 mins; Site: left aa5 antecubital; 14:30 Follow up: Response: No adverse reaction aa5 15:47 Follow up: Response: No adverse reaction; IV Status: Completed infusion aa5 Disposition: 07/09/19 14:16 Discharged to Home. Impression: Diverticulitis of large intestine without perforation or abscess without bleeding. - Condition is Stable. - Discharge Instructions: Diverticulitis. - Prescriptions for Zofran ODT 4 mg Oral tablet,disintegrating - place 1 tablet by TRANSLINGUAL route every 8 hours As needed; 20 tablet. Flagyl 500 mg Oral Tablet - take 1 tablet by ORAL route every 8 hours for 10 days; 30 tablet. Levaquin 750 mg Oral Tablet - take 1 tablet by ORAL route once daily for 10 days; 10 tablet. Tylenol- Codeine #3 300-30 mg Oral Tablet - take 1 tablet by ORAL route every 6 hours As needed; 20 tablet. - Medication Reconciliation Form, Thank You Letter, Antibiotic Education, Prescription Opioid Use form. - Follow up: Paul Hutchison MD; When: As needed; Reason: Recheck today's complaints, Re-evaluation by your physician. - Problem is new. - Symptoms have improved. Signatures: Dispatcher [employer] EDMS Spencer Emery MD MD rn Calderon, Audri RN RN aa5 Matthieu Man RN RN la1 Bruce Petersen RN RN jl7 Corrections: (The following items were deleted from the chart) 15:49 14:16 07/09/2019 14:16 Discharged to Home. Impression: Diverticulitis of large aa5 intestine without perforation or abscess without bleeding. Condition is Stable. Forms are Medication Reconciliation Form, Thank You Letter, Antibiotic Education, Prescription Opioid Use. Follow up: Paul Hutchison; When: As needed; Reason: Recheck today's complaints, Re-evaluation by your physician. Problem is new. Symptoms have improved. rn
[2019-07-09 17:17] VITALS: TEMP 97.7
[2019-07-09 17:20] VITALS: BP 134/88; O2SAT 97
== END 2019-07-09 15:49 | disposition home or self-care (01) ==
LOC: ER 10:44
DX: K57.32 Diverticulitis of large intestine without perforation or abscess without bleeding (principal); I10 Essential (primary) hypertension
CPT/HCPCS: 96365; 96361; 85025; 80048; 36415; 80076; 83690; 74177; 96375; 99284; Q9967; J2405

== ENCOUNTER 2019-07-27 13:02 | Emergency (ER) | payer OTHER ==
[2019-07-27] MEDS ORDERED: MORPHINE 4 MG/ML SYR ONE (14:33)
[2019-07-27] MEDS ORDERED: NA CHLORIDE 0.9% 1,000 ML ONE (14:33)
[2019-07-27] MEDS ORDERED: ONDANSETRON 4 MG/2 ML VIAL ONE (14:33)
[2019-07-27 14:41] LABS: Basophils % 0.5 % (0-1.3); Lymphocytes % 17.5 % (15.3-44.8); MPV 8.7 fL (7.6-11.3); RBC Red Blood Cell Count 5.26 M/uL (4.33-5.43)
[2019-07-27 14:55] LABS: Albumin 4.2 g/dL (3.4-5.0); Bilirubin Direct 0.2 mg/dL (0-0.2); Bilirubin Total 0.6 mg/dL (0.2-1.0); Potassium 4.3 mmol/L (3.5-5.1); Protein, Total 8.2 g/dL (6.4-8.2)
--- NOTE | 2019-07-27 15:53 | RAD REPORT ---
EXAM DESCRIPTION: CT - Abdomen Pelvis W Contrast - 07/27/2019 3:22 pm CLINICAL HISTORY: Abdominal pain COMPARISON: June 2019 TECHNIQUE: Computed axial tomography of the abdomen pelvis was obtained. 100 cc Isovue-300 was admin istered intravenously. Oral contrast was not requested which limits evaluation of bowel. All CT scans are performed using dose optimization technique as appropriate and may include automated exposure control or mA/KV adjustment according to patient size. FINDINGS: Fatty liver Spleen, pancreas, adrenal and kidneys appear unremarkable. Normal appendix Diverticula stem from the colon. Narrowing of sigmoid colon. Moderate stranding within the adjacent f at. No extraluminal air. No abscess. IMPRESSION: Moderate sigmoid diverticulitis
[2019-07-27] MEDS ORDERED: HYDROMORPHONE HCL 2 MG/ML inj ONE (16:34)
--- NOTE | 2019-07-27 17:38 | ER ---
Nurse's Notes [facility] Cem Name: Fausto Toro Age: 38 yrs Sex: Male : 1980 Arrival Date: 07/27/2019 Time: 13:04 Bed 28 Private MD: Bishop Petersen Diagnosis: Diverticulitis of large intestine without perforation or abscess without bleeding Presentation: 07/27 13:06 Presenting complaint: Patient states: Bloody bm this morning, reports currently being sg treated for Diverticulitis with consults to , pt states that the flagyl and levaquin are not working, reports being on day three of treatment with no improvement, pt states fever/chills and diarrhea for 3-4 days. Transition of care: patient was not received from another setting of care. Onset of symptoms was July 27, 2019. Risk Assessment: Do you want to hurt yourself or someone else? Patient reports no desire to harm self or others. Initial Sepsis Screen: Does the patient meet any 2 criteria? HR > 90 bpm. No. Patient's initial sepsis screen is negative. Does the patient have a suspected source of infection? Yes: Acute abdominal pain. Care prior to arrival: None. 13:06 Method Of Arrival: Ambulatory sg 13:06 Acuity: ALDAIR 3 sg Historical: - Allergies: 15:01 NKA; tr5 - Home Meds: 15:01 Levaquin Oral [Active]; Flagyl Oral [Active]; acetaminophen-codeine Oral [Active]; tr5 - PMHx: 13:09 Diverticulitis; Hypertension; sg - Immunization history:: Adult Immunizations up to date. - Social history:: Smoking status: Patient/guardian denies using tobacco. - Ebola Screening: : Patient negative for fever greater than or equal to 101.5 degrees Fahrenheit, and additional compatible Ebola Virus Disease symptoms Patient denies exposure to infectious person Patient denies travel to an Ebola-affected area in the 21 days before illness onset No symptoms or risks identified at this time. Screenin:30 Abuse screen: Denies threats or abuse. Nutritional screening: No deficits noted. tr5 Tuberculosis screening: No symptoms or risk factors identified. Fall Risk None identified. Assessment: 14:20 General: Appears uncomfortable, Behavior is calm, cooperative, appropriate for age. tr5 Pain: Complains of pain in right lower quadrant and left lower quadrant Pain does not radiate. Pain currently is 9 out of 10 on a pain scale. Quality of pain is described as aching, crampy, Pain began gradually, Is continuous, Alleviated by nothing. Aggravated by eating. Neuro: Level of Consciousness is awake, alert, obeys commands, Oriented to person, place, time, Public Address Technician are equal bilaterally Moves all extremities. Gait is steady, Speech is normal. Cardiovascular: Heart tones present Capillary refill < 3 seconds Pulses are all present. Edema is absent. Respiratory: Airway is patent Respiratory effort is even, unlabored, Respiratory pattern is regular, symmetrical. GI: Abdomen is round Bowel sounds present X 4 quads. Abdomen is tender to palpation in left lower quadrant Reports constipation, diarrhea, bloody stool, intolerance of fluids, intolerance of food, nausea. : No signs and/or symptoms were reported regarding the genitourinary system. EENT: No signs and/or symptoms were reported regarding the EENT system. Derm: Skin is intact, Skin is dry, Skin is normal, Skin temperature is warm. Musculoskeletal: Capillary refill < 3 seconds, Range of motion: intact in all extremities. 15:30 Reassessment: Patient appears in no apparent distress at this time. Patient and/or tr5 family updated on plan of care and expected duration. Pain level reassessed. Patient is alert, oriented x 3, equal unlabored respirations, skin warm/dry/pink. Vital Signs: 13:09 BP 142 / 91; Pulse 111; Resp 17; Temp 98.6; Pulse Ox 100% on R/A; Weight 108.86 kg; sg Height 6 ft. 1 in. (185.42 cm); Pain 10/10; 14:30 BP 130 / 76; Pulse 80; Resp 17; Pulse Ox 97% on R/A; tr5 15:30 BP 143 / 91; Pulse 86; Resp 16; Pulse Ox 100% ; tr5 13:09 Body Mass Index 31.66 (108.86 kg, 185.42 cm) sg ED Course: 13:04 Patient arrived in ED. rg4 13:05 Bishop Petersen MD is Private Physician. rg4 13:06 Arm band placed on. sg 13:08 Triage completed. sg 14:11 Sean Montesinos RN is Primary Nurse. tr5 14:16 Dru Cobb [facility]. pm1 14:16 Andrew Toro MD is Attending Physician. pm1 14:20 Inserted saline lock: 20 gauge in right antecubital area, using aseptic technique. tr5 14:29 Initial lab(s) drawn, by me, sent to lab. tr5 14:30 Awaiting lab results. tr5 14:30 Bed in low position. Call light in reach. Side rails up X 1. Pulse ox on. NIBP on. tr5 14:37 CT Abd/Pelvis - IV Contrast Only In Process Unspecified. EDMS 15:23 CT completed. Patient tolerated procedure well. Patient moved back from CT. bq Administered Medications: 14:40 Drug: Zofran 4 mg Route: IVP; Site: left forearm; tr5 16:07 Follow up: Response: No adverse reaction; Marked relief of symptoms tr5 14:41 Drug: NS 0.9% 1000 ml Route: IV; Rate: 1000 ml; Site: left antecubital; tr5 16:08 Follow up: Response: No adverse reaction; IV Status: Completed infusion; IV Intake: tr5 1000ml 14:41 Drug: morphine 4 mg {Note: Rass:0.} Route: IVP; Site: left antecubital; tr5 16:08 Follow up: Response: Pain is decreased; RASS: Alert and Calm (0) tr5 16:35 Drug: Dilaudid 1 mg {Note: RAAS:0.} Route: IVP; Site: left antecubital; tr5 17:15 Follow up: Response: Pain is decreased; RASS: Alert and Calm (0) tr5 Intake: 16:08 IV: 1000ml; Total: 1000ml. tr5 Outcome: 17:37 Discharge ordered by . pm1 17:47 Patient left the ED. sg Signatures: Dispatcher [employer] EDMS Patrice Conway RN RN Padmini Neri Patrick, NP [employer]OR PLANT OPERATOR pm1 Dana Trejo rg4 Sean Montesinos RN RN tr5 Corrections: (The following items were deleted from the chart) 15:01 13:08 Allergies: NKA; sg tr5 16:06 15:30 BP 125 / 88; Pulse 70bpm; Resp 16bpm; Pulse Ox 100%; tr5 tr5 16:36 16:35 Dilaudid 1 mg IVP in left antecubital tr5 tr5
--- NOTE | 2019-07-27 17:38 | EDPHYS ---
Physician Documentation [facility] Cem Name: Fausto Toro Age: 38 yrs Sex: Male : 1980 Arrival Date: 07/27/2019 Time: 13:04 Bed 28 Private MD: Bishop Petersen ED Physician Andrew Toro HPI: 07/27 15:00 This 38 yrs old Male presents to ER via Ambulatory with complaints of pm1 Abdominal Pain. 15:00 The patient presents with abdominal pain in the left lower quadrant. pm1 15:00 Onset: The symptoms/episode began/occurred 4 day(s) ago. The symptoms do not radiate. pm1 The symptoms are described as sharp. Modifying factors: The symptoms are alleviated by nothing, the symptoms are aggravated by pressure, touching the area. Severity of pain: in the emergency department the pain is actually worse. The patient has experienced similar episodes in the past, multiple times. The patient has been recently seen by a physician: Dr. Hutchison and prescribed Levaquin and Flagyl 3 days ago for same presentation of pain. Was given referral to colorectal surgeon. Historical: - Allergies: 15:01 NKA; tr5 - Home Meds: 15:01 Levaquin Oral [Active]; Flagyl Oral [Active]; acetaminophen-codeine Oral [Active]; tr5 - PMHx: 13:09 Diverticulitis; Hypertension; sg - Immunization history:: Adult Immunizations up to date. - Social history:: Smoking status: Patient/guardian denies using tobacco. - Ebola Screening: : Patient negative for fever greater than or equal to 101.5 degrees Fahrenheit, and additional compatible Ebola Virus Disease symptoms Patient denies exposure to infectious person Patient denies travel to an Ebola-affected area in the 21 days before illness onset No symptoms or risks identified at this time. ROS: 15:03 Eyes: Negative for injury, pain, redness, and discharge, ENT: Negative for injury, pm1 pain, and discharge, Neck: Negative for injury, pain, and swelling. 15:03 Cardiovascular: Negative for chest pain, palpitations, and edema, Respiratory: Negative for shortness of breath, cough, wheezing, and pleuritic chest pain. 15:03 Back: Negative for injury and pain, : Negative for injury, bleeding, discharge, and swelling, MS/Extremity: Negative for injury and deformity, Skin: Negative for injury, rash, and discoloration, Neuro: Negative for headache, weakness, numbness, tingling, and seizure. 15:03 Constitutional: Positive for fever, Negative for body aches, poor PO intake. 15:03 Abdomen/GI: Positive for abdominal pain, diarrhea, of the left lower quadrant, Negative for nausea, vomiting. Exam: 15:03 Constitutional: This is a well developed, well nourished patient who is awake, alert, pm1 and in no acute distress. Head/Face: Normocephalic, atraumatic. Chest/axilla: Normal chest wall appearance and motion. Nontender with no deformity. No lesions are appreciated. Cardiovascular: Regular rate and rhythm with a normal S1 and S2. No gallops, murmurs, or rubs. Normal PMI, no JVD. No pulse deficits. Respiratory: Lungs have equal breath sounds bilaterally, clear to auscultation and percussion. No rales, rhonchi or wheezes noted. No increased work of breathing, no retractions or nasal flaring. 15:03 Back: No spinal tenderness. No costovertebral tenderness. Full range of motion. Skin: Warm, dry with normal turgor. Normal color with no rashes, no lesions, and no evidence of cellulitis. MS/ Extremity: Pulses equal, no cyanosis. Neurovascular intact. Full, normal range of motion. 15:03 Abdomen/GI: Inspection: abdomen appears normal, Bowel sounds: normal, Palpation: soft, in all quadrants, moderate abdominal tenderness, in the left lower quadrant, mass, is not appreciated, rebound tenderness, is not appreciated. 15:03 Neuro: Orientation: is normal, Motor: is normal, moves all fours, Sensation: is normal, no obvious gross deficits, Gait: is steady, at a normal pace, without difficulty. Vital Signs: 13:09 BP 142 / 91; Pulse 111; Resp 17; Temp 98.6; Pulse Ox 100% on R/A; Weight 108.86 kg; sg Height 6 ft. 1 in. (185.42 cm); Pain 10/10; 14:30 BP 130 / 76; Pulse 80; Resp 17; Pulse Ox 97% on R/A; tr5 15:30 BP 143 / 91; Pulse 86; Resp 16; Pulse Ox 100% ; tr5 13:09 Body Mass Index 31.66 (108.86 kg, 185.42 cm) sg MDM: 14:17 Patient medically screened. pm1 16:10 Physician consultation: Paul Hutchison MD was called at 16:10, was contacted at 16:10, pm1 regarding consult, patient's condition, has spoken to Dr. Toro about patient plan of care. Referral to Dr. Yao. 16:22 Data reviewed: vital signs. pm1 17:36 Counseling: I had a detailed discussion with the patient and/or guardian regarding: the pm1 historical points, exam findings, and any diagnostic results supporting the discharge/admit diagnosis, lab results, radiology results, the need for outpatient follow up, a colorectal specialist, Dr. Jermain Yao as recommended by Dr. Hutchison. 07/27 14:17 Order name: Basic Metabolic Panel; Complete Time: 15:14 pm1 07/27 14:17 Order name: CBC with Diff; Complete Time: 15:18 pm1 07/27 14:17 Order name: Creatinine for Radiology; Complete Time: 15:14 pm1 07/27 14:17 Order name: Hepatic Function; Complete Time: 15:14 pm1 07/27 14:17 Order name: Lipase; Complete Time: 15:14 pm1 07/27 14:17 Order name: CT Abd/Pelvis - IV Contrast Only; Complete Time: 16:09 pm1 07/27 14:17 Order name: IV Saline Lock; Complete Time: 14:41 pm1 07/27 14:17 Order name: Labs collected and sent; Complete Time: 14:41 pm1 07/27 14:26 Order name: NPO; Complete Time: 14:41 pm1 Administered Medications: 14:40 Drug: Zofran 4 mg Route: IVP; Site: left forearm; tr5 16:07 Follow up: Response: No adverse reaction; Marked relief of symptoms tr5 14:41 Drug: NS 0.9% 1000 ml Route: IV; Rate: 1000 ml; Site: left antecubital; tr5 16:08 Follow up: Response: No adverse reaction; IV Status: Completed infusion; IV Intake: tr5 1000ml 14:41 Drug: morphine 4 mg {Note: Rass:0.} Route: IVP; Site: left antecubital; tr5 16:08 Follow up: Response: Pain is decreased; RASS: Alert and Calm (0) tr5 16:35 Drug: Dilaudid 1 mg {Note: RAAS:0.} Route: IVP; Site: left antecubital; tr5 17:15 Follow up: Response: Pain is decreased; RASS: Alert and Calm (0) tr5 Disposition: 07/27/19 17:37 Discharged to Home. Impression: Diverticulitis of large intestine without perforation or abscess without bleeding. - Condition is Stable. - Discharge Instructions: Diverticulitis. - Prescriptions for Zofran 4 mg Oral Tablet - take 1 tablet by ORAL route every 12 hours As needed; 20 tablet. Tramadol 50 mg Oral Tablet - take 1 tablet by ORAL route every 8 hours as needed; 12 tablet. - Medication Reconciliation Form, Thank You Letter, Antibiotic Education, Prescription Opioid Use form. - Follow up: Emergency Department; When: As needed; Reason: Worsening of condition. Follow up: Private Physician; When: 2 - 3 days; Reason: Recheck today's complaints, Continuance of care, Re-evaluation by your physician. - Problem is new. - Symptoms have improved. Addendum: 07/29/2019 09:38 Co-signature as Attending Physician, Andrew Toro MD I agree with the assessment and k dr plan of care. Signatures: Dispatcher [employer] EDMS Patrice Conway RN RN sg Rittger, Kevin, MD MD [facility] Dru Cobb NP TOOLS ADMINISTRATOR pm1 Sean Montesinos RN RN tr5 Corrections: (The following items were deleted from the chart) 07/27 15:01 13:08 Allergies: NKA; sg tr5 17:47 17:37 07/27/2019 17:37 Discharged to Home. Impression: Diverticulitis of large sg intestine without perforation or abscess without bleeding. Condition is Stable. Forms are Medication Reconciliation Form, Thank You Letter, Antibiotic Education, Prescription Opioid Use. Follow up: Emergency Department; When: As needed; Reason: Worsening of condition. Follow up: Private Physician; When: 2 - 3 days; Reason: Recheck today's complaints, Continuance of care, Re-evaluation by your physician. Problem is new. Symptoms have improved. pm1 17:55 15:03 Abdomen/GI: Inspection: abdomen appears normal, Bowel sounds: normal, Palpation: pm1 soft, in all quadrants, mass, is not appreciated, rebound tenderness, is not appreciated, pm1
[2019-07-27 20:30] VITALS: TEMP 98.6
[2019-07-27 20:33] VITALS: BP 143/91; O2SAT 100
== END 2019-07-27 17:47 | disposition home or self-care (01) ==
LOC: ER 13:02
DX: K57.32 Diverticulitis of large intestine without perforation or abscess without bleeding (principal); I10 Essential (primary) hypertension
CPT/HCPCS: 96361; 85025; 80048; 36415; 80076; 83690; 74177; 96375; 96374; 99284; Q9967; J1170; J7030; J2405

== ENCOUNTER 2019-08-31 05:28 | Emergency (ER) | payer OTHER ==
[2019-08-31] MEDS ORDERED: MORPHINE 4 MG/ML SYR ONE (06:05)
[2019-08-31] MEDS ORDERED: ONDANSETRON 4 MG/2 ML VIAL ONE (06:05)
[2019-08-31] MEDS ORDERED: NA CHLORIDE 0.9% 1,000 ML ONE (06:05)
[2019-08-31 06:21] LABS: Absolute Lymphocytes (CBC) 1.9 K/uL (0.7-4.9); Basophils % 0.5 % (0-1.3); Hematocrit 42.1 % (39.6-49.0); Lymphocytes % 18.5 % (15.3-44.8); MPV 8.7 fL (7.6-11.3); RBC Red Blood Cell Count 4.67 M/uL (4.33-5.43)
[2019-08-31 06:48] LABS: Albumin 3.5 g/dL (3.4-5.0); Bilirubin Direct 0.1 mg/dL (0-0.2); Bilirubin Total 0.3 mg/dL (0.2-1.0); Potassium 4.2 mmol/L (3.5-5.1); Protein, Total 7.6 g/dL (6.4-8.2)
[2019-08-31] MEDS ORDERED: FENTANYL CITR 100 MCG/2 ML ONE ×2 (07:08→09:14)
--- NOTE | 2019-08-31 08:28 | RAD REPORT ---
EXAM DESCRIPTION: CT - Abdomen Pelvis W Contrast - 08/31/2019 8:07 am CLINICAL HISTORY: ABD PAIN, patient status post sigmoid resection August 23 COMPARISON: July 27, 2019 TECHNIQUE: Biphasic, helical CT imaging of the abdomen and pelvis was performed following 100 ml non -ionic IV contrast. Oral contrast was given. All CT scans are performed using dose optimization technique as appropriate and may include automated exposure control or mA/KV adjustment according to patient size. FINDINGS: Lung base atelectasis present with no acute lung base finding. Diffuse fatty infiltration is present in the liver with no focal liver abnormality. No spleen or panc reatic acute process. Gallbladder and biliary tree are also without suspicious finding. Symmetric renal function is seen with no hydronephrosis or suspicious renal mass. No pyelonephritis o r acute parenchymal process. Urinary bladder is mostly contracted limiting assessment. No bladder rossi culus. No prostate gland or seminal vesicle acute finding. No adrenal abnormalities. No gastric dilatation or gastric wall thickening. Oral CT contrast has reached the distal rectum. No dilation of the large or small bowel. Patient has a rectosigmoid anastomotic site. The [place] of the colon proximal and distal to the anasto mosis show mild circumferential thickening. This is not unexpected given the 1 [address] since surgery[address] randing is present in the adjacent fatty tissues also not unexpected. Between the rectum and posterio r wall of the bladder there is a 3 x 2 cm focal collection. This may be small postoperative hematoma/ seroma. Very early abscess is possible. No extravasation of oral contrast. In the subcutaneous fatty tissues lower abdominal wall above the pubic symphysis there is a 10 x 4 centimeter hematoma. This is presumed to be at the surgical access site. No large mass or hematoma within the abdominal wall. Abd ominal wall is intact. No drainable fluid collection in the subcutaneous fatty tissues. Patient has a few punctate areas of free intraperitoneal air near the anterior right hemidiaphragm. N o free air near the anastomotic site. This is believed to be remnant postsurgical air not regarded as suspicious. No hernia, mass or bulky lymphadenopathy. No suspicious bony findings. IMPRESSION: The patient has a 10 x 4 cm hematoma in the subcutaneous fatty tissues inferior abdomen deep to the incision site. Patient has a 3 x 2 cm small focal collection between the rectum and bladder. This is probably a smal l hematoma/ seroma. Early abscess is not excluded. Mild circumferential wall thickening and adjacent stranding at the rectosigmoid anastomotic site. Thi s is not unexpected for the recent surgery. Oral contrast has passed through this region. There is no evidence to suspect anastomotic leak. A few punctate air densities near the right hemidiaphragm are believed to be remnant from the surgery . Acute free air is not suspected. Fatty infiltration of the liver.
[2019-08-31 09:07] LABS: Protime INR 1.11
[2019-08-31] MEDS ORDERED: AMOX/K CLAV 875 MG TAB ONE (09:14)
--- NOTE | 2019-08-31 09:18 | ER ---
Nurse's Notes [facility] Name: Fausto Toro Age: 38 yrs Sex: Male : 1980 Arrival Date: 08/31/2019 Time: 05:34 Bed 2 Private MD: Diagnosis: Localized swelling, mass and lump of skin and subcutaneous tissue-post surgery lower abdomen hematoma Presentation: 08/31 05:35 Presenting complaint: Patient states: he woke up with blood on his clothes and sheets. ak1 pt had recent sx 08/23/[address] Pride at [facility] - sigmoid colectomy. pt taking norco for pain. no bleeding noted at this time. incision healing with no purulent drainage. Transition of care: patient was not received from another setting of care. Onset of symptoms was August 31, 2019. Risk Assessment: Do you want to hurt yourself or someone else? Patient reports no desire to harm self or others. Initial Sepsis Screen: Does the patient meet any 2 criteria? No. Patient's initial sepsis screen is negative. Does the patient have a suspected source of infection? No. Patient's initial sepsis screen is negative. Care prior to arrival: None. 05:35 Method Of Arrival: EMS: [facility] ak1 05:35 Acuity: ALDAIR 3 ak1 Triage Assessment: 05:40 General: Appears in no apparent distress. Behavior is calm, cooperative. Pain: ak1 Complains of pain in suprapubic area. EENT: No signs and/or symptoms were reported regarding the EENT system. Neuro: No deficits noted. Cardiovascular: No deficits noted. Respiratory: No deficits noted. GI: Abdomen is non-distended, healing incision noted with no purulent drainage, no bleeding noted. : No signs and/or symptoms were reported regarding the genitourinary system. Derm: No deficits noted. Musculoskeletal: No deficits noted. Historical: - Allergies: 05:40 NKA; ak1 - Home Meds: 05:40 gabapentin oral oral [Active]; Robaxin Oral [Active]; lidocaine patch [Active]; [place] ak1 Oral [Active]; - PMHx: 05:40 Diverticulitis; Hypertension; ak1 - PSHx: 05:[address]; Tonsillectomy; herniated hydrocele; ak1 - Immunization history:: Adult Immunizations unknown. - Social history:: Smoking status: Patient/guardian denies using tobacco. - Ebola Screening: : No symptoms or risks identified at this time. - Family history:: not pertinent. Screenin:41 Abuse screen: Denies threats or abuse. Denies injuries from another. Nutritional ak1 screening: No deficits noted. Tuberculosis screening: No symptoms or risk factors identified. Fall Risk None identified. Assessment: 05:42 Reassessment: Patient appears in no apparent distress at this time. No changes from ak1 previously documented assessment. see triage assessment. 06:21 Reassessment: pt refused morphine. pt states he can not drink the oral contrast, Dr. eveline Kramer notified. pt encouraged to attempt and drink as much as he can per Dr. Kramer. 06:45 Reassessment: CT notified pt finished drinking oral contrast. ak1 06:48 Reassessment: pt removed monitoring equipment. . ak1 07:15 General: Appears comfortable. Pain: Complains of pain in groin Pain currently is 7 out aa5 of 10 on a pain scale. Quality of pain is described as tender, Is continuous. Neuro: Level of Consciousness is awake, alert, obeys commands, Oriented to person, place, time, situation. Cardiovascular: Heart tones S1 S2 present Rhythm is regular. Respiratory: Airway is patent Respiratory effort is even, unlabored, Respiratory pattern is regular, symmetrical. GI: Abdomen is round non-distended. : Reports bruising to genitals. Denies inability to void. EENT: No signs and/or symptoms were reported regarding the EENT system. Derm: Skin is pink, warm \\T\\ dry. Incision noted to groin area, edges well approximated and no signs of infection noted to site, bruising that is dark purple, green, and yellowish to this incision. Pt sates "I woke up to this incision bleeding and now my texted me and said that I bleed through the mattress", no active bleeding noted. Multiple laparoscopic incisions noted with edges well approximated and no signs of infection noted. Musculoskeletal: Range of motion: intact in all extremities. 07:54 Reassessment: Pt assisted to restroom via wheelchair, pt reports bowel movement with aa5 moderate amount of bright red blood after BM. Pt awaiting CT at this time. . 07:58 Reassessment: Pt to CT via wheelchair . aa5 08:20 Reassessment: Patient is alert, oriented x 3, equal unlabored respirations, skin aa5 warm/dry/pink. Pt back from CT, small amount of blood noted to left side of groin incision, pressure being applied by pt with abd pad and no active bleeding at this time. . 08:50 Reassessment: Pt assisted to restroom via wheelchair, pt reports having BM without aa5 blood this time. Small amount of bleeding from left side of groin incision, pressure being applied by pt with abd pad, pt placed back in bed and no active bleeding noted at this time. . 09:12 Reassessment: Patient is alert, oriented x 3, equal unlabored respirations, skin aa5 warm/dry/pink. 09:25 Reassessment: Patient is alert, oriented x 3, equal unlabored respirations, skin aa5 warm/dry/pink. Vital Signs: 05:34 BP 141 / 72; Pulse 77; Resp 16; Temp 97.9; Pulse Ox 96% on R/A; Weight 113.4 kg (R); ak1 Height 6 ft. 3 in. (190.50 cm) (R); Pain 7/10; 06:35 BP 127 / 99; Pulse 78; Resp 18; Pulse Ox 99% ; ea 07:15 BP 118 / 58; Pulse 78; Resp 16 S; Temp 98.5(O); Pulse Ox 98% on R/A; Pain 7/10; aa5 08:22 BP 133 / 84; Pulse 78; Resp 18 S; Pulse Ox 97% on R/A; aa5 09:00 BP 119 / 82; Pulse 75; Resp 16 S; Pulse Ox 96% on R/A; aa5 05:34 Body Mass Index 31.25 (113.40 kg, 190.50 cm) ak1 ED Course: 05:34 Patient arrived in ED. ds1 05:34 Elvira Singh RN is Primary Nurse. ak1 05:34 Arm band placed on Patient placed in an exam room, on a stretcher, on pulse oximetry, ak1 Patient notified of wait time. 05:36 Ranjan Kramer MD is Attending Physician. [facility] 05:37 Triage completed. ak1 05:41 Patient has correct armband on for positive identification. Bed in low position. Call ak1 light in reach. Side rails up X2. Pulse ox on. NIBP on. 05:41 Maintain EMS IV. Dressing intact. Site clean \\T\\ dry. Gauge \\T\\ site: 18g right AC. ak 1 06:45 Note: Finished oral contrast at 6:30. . kw1 07:42 Ranjan Pacheco PA is PHCP. cp 08:01 CT completed. Patient tolerated procedure well. Patient moved back from CT. bq 08:07 CT Abd/Pelvis - PO and IV Contrast In Process Unspecified. EDMS 08:[address] Christian's office called at [phone]/ The answering service has eb put out a page to the transitional care liaison physician. per answering service if the transitional care liaison physician hasn't called back in 15 minutes to please call back. 08:[address] Jameson the colorectal surgeon transitional care liaison for Dr. Callaway with Ranjan VALDEZ for eb patient consultation. 09:20 No provider procedures requiring assistance completed. IV discontinued, intact, aa5 bleeding controlled, No redness/swelling at site. Pressure dressing applied. Administered Medications: 06:21 Drug: NS 0.9% 1000 ml Route: IV; Rate: 1 bolus; Site: right antecubital; ak1 07:15 Follow up: IV Status: Completed infusion; IV Intake: 1000ml aa5 06:21 Not Given (Patient Refused): morphine 4 mg IVP once; RASS on ADMIN: Combtv4, Very ak1 Agttd3, Agttd2, Rstlss1, AlertClm0, Drwsy-1, Lt Sdtn-2, Mod Sdtn-3, Dp Sdtn-4, UnArsble-5 06:21 Drug: Zofran 4 mg Route: IVP; Site: right antecubital; ak1 06:53 Follow up: Response: No adverse reaction ak1 07:15 Drug: fentaNYL (PF) 25 mcg Route: IVP; Site: right antecubital; aa5 07:30 Follow up: Response: No adverse reaction aa5 09:12 Drug: Augmentin 875 mg Route: PO; aa5 09:25 Follow up: Response: No adverse reaction; Medication administered at discharge. aa5 09:12 Drug: fentaNYL (PF) 25 mcg Route: IVP; Site: right antecubital; aa5 09:25 Follow up: Response: No adverse reaction aa5 Intake: 07:15 IV: 1000ml; Total: 1000ml. aa5 Output: 07:15 Urine: 350ml (Voided); Total: 350ml. aa5 07:36 Urine: 400ml (Voided); Total: 750ml. aa5 Outcome: 09:18 Discharge ordered by . cp 09:25 Discharged to home via wheelchair, with significant other. aa5 09:25 Condition: stable 09:25 Discharge instructions given to patient, Instructed on discharge instructions, follow up and referral plans. medication usage, Demonstrated understanding of instructions, follow-up care, medications, Prescriptions given X 1. 09:30 Patient left the ED. aa5 Signatures: Dispatcher [employer] EDMS Ranjan Kramer MD MD cha Quilty, Betty bq Sanford, Demi ds1 Patricia Mirza, RN RN aaElvira Alonzo RN RN ak1 Ranjan Pacheco PA PA cp Antunez, Elena RN RN Taylor Meehan1 Alysa Amaral Corrections: (The following items were deleted from the chart) 05:52 05:35 Acuity: ALDAIR 4 ak1 ak1 09:08 08:[address] Richards the colorectal surgeon transitional care liaison for Dr. Callaway with Ranjan holliday for patient consultation. eb
--- NOTE | 2019-08-31 09:19 | EDPHYS ---
Physician Documentation [facility] Name: Fausto Toro Age: 38 yrs Sex: Male : 1980 Arrival Date: 08/31/2019 Time: 05:34 Bed 2 Private MD: ED Physician Ranjan Kramer HPI: 08/31 05:56 This 38 yrs old Male presents to ER via EMS with complaints of lower abd ainsley pain, incisional bleeding. 05:56 The patient presents with abdominal pain in the lower abdomen, in the left upper ainsley quadrant, in the left lower quadrant, abdominal distention in the upper abdomen, in the lower abdomen. Onset: The symptoms/episode began/occurred 1 day(s) ago. The symptoms do not radiate. Associated signs and symptoms: none. The symptoms are described as dull, steady. Modifying factors: The symptoms are alleviated by nothing, the symptoms are aggravated by movement, pressure. Severity of pain: At its worst the pain was moderate in the emergency department the pain is unchanged. The patient has not experienced similar symptoms in the past. Historical: - Allergies: 05:40 NKA; ak1 - Home Meds: 05:40 gabapentin oral oral [Active]; Robaxin Oral [Active]; lidocaine patch [Active]; Tappan ak1 Oral [Active]; - PMHx: 05:40 Diverticulitis; Hypertension; ak1 - PSHx: 05:[address]; Tonsillectomy; herniated hydrocele; ak1 - Immunization history:: Adult Immunizations unknown. - Social history:: Smoking status: Patient/guardian denies using tobacco. - Ebola Screening: : No symptoms or risks identified at this time. - Family history:: not pertinent. ROS: 05:56 Constitutional: Negative for fever, chills, and weight loss, Eyes: Negative for injury, ainsley pain, redness, and discharge, ENT: Negative for injury, pain, and discharge, Neck: Negative for injury, pain, and swelling, Cardiovascular: Negative for chest pain, palpitations, and edema, Respiratory: Negative for shortness of breath, cough, wheezing, and pleuritic chest pain, Back: Negative for injury and pain, : Negative for injury, bleeding, discharge, and swelling, MS/Extremity: Negative for injury and deformity, Skin: Negative for injury, rash, and discoloration, Neuro: Negative for headache, weakness, numbness, tingling, and seizure, Psych: Negative for depression, anxiety, suicide ideation, homicidal ideation, and hallucinations, Allergy/Immunology: Negative for hives, rash, and allergies, Endocrine: Negative for neck swelling, polydipsia, polyuria, polyphagia, and marked weight changes, Hematologic/Lymphatic: Negative for swollen nodes, abnormal bleeding, and unusual bruising. 05:56 Abdomen/GI: Positive for abdominal pain, abdominal distension, of the left upper quadrant and left lower quadrant. Exam: 05:56 Constitutional: This is a well developed, well nourished patient who is awake, alert, ainsley and in no acute distress. Head/Face: Normocephalic, atraumatic. Eyes: Pupils equal round and reactive to light, extra-ocular motions intact. Lids and lashes normal. Conjunctiva and sclera are non-icteric and not injected. Cornea within normal limits. Periorbital areas with no swelling, redness, or edema. ENT: Nares patent. No nasal discharge, no septal abnormalities noted. Tympanic membranes are normal and external auditory canals are clear. Oropharynx with no redness, swelling, or masses, exudates, or evidence of obstruction, uvula midline. Mucous membranes moist. Neck: Trachea midline, no thyromegaly or masses palpated, and no cervical lymphadenopathy. Supple, full range of motion without nuchal rigidity, or vertebral point tenderness. No Meningismus. Chest/axilla: Normal chest wall appearance and motion. Nontender with no deformity. No lesions are appreciated. Cardiovascular: Regular rate and rhythm with a normal S1 and S2. No gallops, murmurs, or rubs. Normal PMI, no JVD. No pulse deficits. Respiratory: Lungs have equal breath sounds bilaterally, clear to auscultation and percussion. No rales, rhonchi or wheezes noted. No increased work of breathing, no retractions or nasal flaring. Back: No spinal tenderness. No costovertebral tenderness. Full range of motion. Male : Normal genitalia with no discharge or lesions. Skin: Warm, dry with normal turgor. Normal color with no rashes, no lesions, and no evidence of cellulitis. MS/ Extremity: Pulses equal, no cyanosis. Neurovascular intact. Full, normal range of motion. Neuro: Awake and alert, GCS 15, oriented to person, place, time, and situation. Cranial nerves II-XII grossly intact. Motor strength 5/5 in all extremities. Sensory grossly intact. Cerebellar exam normal. Normal gait. Psych: Awake, alert, with orientation to person, place and time. Behavior, mood, and affect are within normal limits. 05:56 Abdomen/GI: Inspection: abdomen appears normal, Bowel sounds: normal, Palpation: moderate abdominal tenderness, in the left upper quadrant and left lower quadrant, Liver: no appreciated palpable abnormalities, Hernia: not appreciated. Vital Signs: 05:34 BP 141 / 72; Pulse 77; Resp 16; Temp 97.9; Pulse Ox 96% on R/A; Weight 113.4 kg (R); ak1 Height 6 ft. 3 in. (190.50 cm) (R); Pain 7/10; 06:35 BP 127 / 99; Pulse 78; Resp 18; Pulse Ox 99% ; ea 07:15 BP 118 / 58; Pulse 78; Resp 16 S; Temp 98.5(O); Pulse Ox 98% on R/A; Pain 7/10; aa5 08:22 BP 133 / 84; Pulse 78; Resp 18 S; Pulse Ox 97% on R/A; aa5 09:00 BP 119 / 82; Pulse 75; Resp 16 S; Pulse Ox 96% on R/A; aa5 05:34 Body Mass Index 31.25 (113.40 kg, 190.50 cm) ak1 MDM: 05:36 Patient medically screened. [facility] 05:59 Data reviewed: vital signs, nurses notes, lab test result(s), radiologic studies, CT ainsley scan. 06:00 Differential diagnosis: hematoma, abscess, seroma. 09:10 Physician consultation: DR Jameson, on-call physician for DR Pride, recommends f/u in cp office next week for reevaluation. Have patient start oral Augmentin. Patient is to call answering service if symptoms worsen or return for reevaluation. 08/31 05:53 Order name: Basic Metabolic Panel; Complete Time: 07:03 [facility] 08/31 08:29 Interpretation: Normal except: GLUC 130; GFR 75. 08/31 05:53 Order name: CBC with Diff; Complete Time: 06:40 [facility] 08/31 08:30 Interpretation: Reviewed. 08/31 05:53 Order name: Creatinine for Radiology; Complete Time: 07:03 [facility] 08/31 05:53 Order name: Hepatic Function; Complete Time: 07:03 [facility] 08/31 08:29 Interpretation: Normal except: GLOB 4.1; A/G 0.9. 08/31 05:53 Order name: Lipase; Complete Time: 07:03 [facility] 08/31 08:31 Interpretation: Within normal limits: LIP 129. 08/31 05:55 Order name: Type And Screen; Complete Time: 08:29 [facility] 08/31 05:55 Order name: CT Abd/Pelvis - PO and IV Contrast; Complete Time: 08:34 ainsley 08/31 05:55 Order name: Urine Culture [facility] 08/31 08:44 Order name: PT-INR; Complete Time: 06:35 09/01 06:35 Interpretation: Reviewed. 08/31 08:44 Order name: Ptt, Activated; Complete Time: 06:35 09/01 06:36 Interpretation: Reviewed. 08/31 09:11 Order name: ABO/RH no charge; Complete Time: 06:35 [facility]IN 08/31 05:53 Order name: IV Saline Lock; Complete Time: 06:00 [facility] 08/31 05:53 Order name: Labs collected and sent; Complete Time: 06:21 [facility] 08/31 05:55 Order name: Urine Dipstick-Ancillary (obtain specimen); Complete Time: 06:21 [facility] Administered Medications: 06:21 Drug: NS 0.9% 1000 ml Route: IV; Rate: 1 bolus; Site: right antecubital; ak1 07:15 Follow up: IV Status: Completed infusion; IV Intake: 1000ml aa5 06:21 Not Given (Patient Refused): morphine 4 mg IVP once; RASS on ADMIN: Combtv4, Very ak1 Agttd3, Agttd2, Rstlss1, AlertClm0, Drwsy-1, Lt Sdtn-2, Mod Sdtn-3, Dp Sdtn-4, UnArsble-5 06:21 Drug: Zofran 4 mg Route: IVP; Site: right antecubital; ak1 06:53 Follow up: Response: No adverse reaction ak1 07:15 Drug: fentaNYL (PF) 25 mcg Route: IVP; Site: right antecubital; aa5 07:30 Follow up: Response: No adverse reaction aa5 09:12 Drug: Augmentin 875 mg Route: PO; aa5 09:25 Follow up: Response: No adverse reaction; Medication administered at discharge. aa5 09:12 Drug: fentaNYL (PF) 25 mcg Route: IVP; Site: right antecubital; aa5 09:25 Follow up: Response: No adverse reaction aa5 Disposition: 08/31/19 09:18 Discharged to Home. Impression: Localized swelling, mass and lump of skin and subcutaneous tissue - post surgery lower abdomen hematoma. - Condition is Stable. - Discharge Instructions: Hematoma. - Prescriptions for Augmentin 875- 125 mg Oral Tablet - take 1 tablet by ORAL route every 12 hours for 10 days; 20 tablet. - Medication Reconciliation Form, Thank You Letter, Antibiotic Education, Prescription Opioid Use form. - Follow up: Private Physician; When: 2 - 3 days; Reason: Recheck today's complaints. - Problem is new. - Symptoms have improved. Addendum: 09/02/2019 08:18 Co-signature as Attending Physician, Ranjan Kramer MD I agree with the assessment and c marlow plan of care. Signatures: Dispatcher [employer] EDRanjan Ramires MD MD cha Calderon, Audri, RN RN aa5 Elvira Singh RN RN ak1 Ranjan Pacheco PA PA cp Antunez, Elena, RN RN ea Corrections: (The following items were deleted from the chart) 08/31 09:30 09:18 08/31/2019 09:18 Discharged to Home. Impression: Localized swelling, mass and aa5 lump of skin and subcutaneous tissue - post surgery lower abdomen hematoma. Condition is Stable. Forms are Medication Reconciliation Form, Thank You Letter, Antibiotic Education, Prescription Opioid Use. Follow up: Private Physician; When: 2 - 3 days; Reason: Recheck today's complaints. Problem is new. Symptoms have improved. cp
[2019-08-31 09:39] VITALS: BP 118/58; TEMP 98.5; O2SAT 98
== END 2019-08-31 09:30 | disposition home or self-care (01) ==
LOC: ER 05:28
DX: L76.32 Postprocedural hematoma of skin and subcutaneous tissue following other procedure (principal); I10 Essential (primary) hypertension
CPT/HCPCS: 96361; 87088; 85025; 80048; 36415; 86900; 86850; 85610; 86901; 80076; 85730; 83690; 74177; 96375; 96374; 99284; Q9967; J3010 ×2; J7030; J2405; 87086